=== PATIENT | female | born 1940 | race Caucasian/White ===

== ENCOUNTER 2020-08-19 10:48 | Day surgery (SDC) | payer MEDICARE ==
[2020-08-19] VITALS (8 sets, daily range): BP systolic 166–187; BP diastolic 66–86; PULSE 74–94; TEMP 98
[~2020-08-19] VITALS: Ht 154.9 cm; Wt 86.9 kg
[2020-08-19 11:38] LABS: BASO # 0.1 (0.0-0.2); BASO % 0.5 % (0.0-2.0); EOS # 0.8 (0.0-0.7); GRAN # 7.6 (1.4-6.5); LYMPH # 2.1 (1.2-3.4); LYMPH % 17.9 % (20.0-51.0); MEAN CELL VOLUME 85 fl (80.0-100.0); MEAN CORPUSCULAR HGB CONC 32 g/dl (33.0-37.0); MONO % 8.3 % (1.7-9.3); PLATELET COUNT 379 K/mm3 (130-400); RED BLOOD COUNT 3.56 M/mm3 (4.10-5.30); REDCELL DISTRIBUTION WIDTH-CV 14.7 % (11.5-14.5)
[2020-08-19 11:49] LABS: CALCIUM 9.2 mg/dL (8.4-10.2); CREATININE, serum 3.64 (0.52-1.25); POTASSIUM 4.4 mmol/L (3.4-5.0)
[2020-08-19] MEDS ORDERED: PROCARDIA20 MG PO (11:56)
[2020-08-19] MEDS ORDERED: SYNTHROID0.088 MG/T PO (11:56)
[2020-08-19 11:57] LABS: INR 1.1 (0.8-3.0); PROTHROMBIN TIME 11.8 SECONDS (9.7-12.8)
[2020-08-19] MEDS ORDERED: ATARAX 25MG25 MG/TAB PO (11:57)
[2020-08-19] MEDS ORDERED: CATAPRES 0.1MG0.1 MG PO (11:57)
[2020-08-19] MEDS ORDERED: HUMALOG100 U/ML SQ (11:58)
[2020-08-19] MEDS ORDERED: CARDURA 2MG2 MG PO (11:59)
[2020-08-19] MEDS ORDERED: ASPIRIN E.C. 8181 MG PO (11:59)
[2020-08-19 12:00] LABS: HEMATOCRIT 30.3 % (37.0-47.0); HEMOGLOBIN 9.6 g/dl (12.5-16.0); MEAN CORPUSCULAR HEMOGLOBIN 27 pg (27.0-31.0); PARTIAL THROMBOPLASTIN TIME 39.6 SECONDS (26.0-37.0)
[2020-08-19] MEDS ORDERED: FERRO-TIME325 MG PO (12:00)
[2020-08-19] MEDS ORDERED: PEPCID 20MG TAB20 MG PO (12:01)
[2020-08-19] MEDS ORDERED: TOPROL XL 50MG50 MG PO (12:02)
[2020-08-19] MEDS ORDERED: TRIAMCINOLONE A15 G3 TP (12:03)
[2020-08-19] MEDS ORDERED: BETAMETHASONE VA0.1% TP (12:03)
[2020-08-19] MEDS ORDERED: MYRBETR25MG PO (12:10)
[2020-08-19] MEDS ORDERED: TRAVATAN Z 2.52.5 ML OU (12:13)
[2020-08-19] MEDS ORDERED: LIPITOR 80MG80 MG PO (14:53)
[2020-08-19] MEDS ORDERED: PLAVIX 75MG TAB75 MG PO (14:54)
--- NOTE | 2020-08-19 18:10 | NUR ---
PT's bedrest is complete, pt is able to sit up at edge of bed, stand and ambulate to bathroom with walker with steady gait. No problems with groin site observed. site remains soft with clean dry and intact dressing. cms intact distal. I have reviewed dc, rx and fu instructions with pt and daughter. they denied any questions. IV was dc'd dressing applied, and pt to exit via wheelchair at 1835.
[2020-08-20] MEDS ORDERED: PEPCID 20MG TAB20 MG PO (08:32)
[2020-08-20] MEDS ORDERED: APRESOLINE 10MG10 MG PO (08:34)
[2020-08-20] MEDS ORDERED: APRESOLINE 25MG25 MG PO (08:34)
== END 2020-08-19 19:07 | disposition home or self-care (01) ==
LOC: COL.CAR 10:48
PROVIDERS: Internal Medicine Interventional Cardiology
DX: I25.10 Atherosclerotic heart disease of native coronary artery without angina pectoris (principal); R94.39 Abnormal result of other cardiovascular function study; I13.2 Hypertensive heart and chronic kidney disease with heart failure and with stage 5 chronic kidney disease, or end stage renal disease; E11.22 Type 2 diabetes mellitus with diabetic chronic kidney disease; I65.23 Occlusion and stenosis of bilateral carotid arteries; N18.5 Chronic kidney disease, stage 5; I50.30 Unspecified diastolic (congestive) heart failure; I27.20 Pulmonary hypertension, unspecified; I34.0 Nonrheumatic mitral (valve) insufficiency; D63.1 Anemia in chronic kidney disease; E66.9 Obesity, unspecified; E21.2 Other hyperparathyroidism; M19.90 Unspecified osteoarthritis, unspecified site; N32.81 Overactive bladder; E03.9 Hypothyroidism, unspecified; D33.3 Benign neoplasm of cranial nerves; Z90.5 Acquired absence of kidney; Z90.49 Acquired absence of other specified parts of digestive tract; Z96.653 Presence of artificial knee joint, bilateral; Z88.0 Allergy status to penicillin; Z88.3 Allergy status to other anti-infective agents; Z88.1 Allergy status to other antibiotic agents; Z88.5 Allergy status to narcotic agent
CPT/HCPCS: J1200; J1644; J1940; J2250; J2930; J3010; J7512

== ENCOUNTER 2020-08-20 07:03 | Emergency (ER) | payer MEDICARE ==
[~2020-08-20] VITALS: Ht 154.9 cm; Wt 82.3 kg
[~2020-08-20 07:03] MED LIST: ASPIRIN E.C. 8181 MG PO; ATARAX 25MG25 MG/TAB PO; BETAMETHASONE VA0.1% TP; CARDURA 2MG2 MG PO; CATAPRES 0.1MG0.1 MG PO; FERRO-TIME325 MG PO; HUMALOG100 U/ML SQ; LIPITOR 80MG80 MG PO; MYRBETR25MG PO; PEPCID 20MG TAB20 MG PO; PLAVIX 75MG TAB75 MG PO; PROCARDIA20 MG PO; SYNTHROID0.088 MG/T PO; TOPROL XL 50MG50 MG PO; TRAVATAN Z 2.52.5 ML OU; TRIAMCINOLONE A15 G3 TP
[2020-08-20 07:05] VITALS: TEMP 98.6
[2020-08-20 07:48] LABS: MEAN CELL VOLUME 85 fl (80.0-100.0); MEAN CORPUSCULAR HGB CONC 32 g/dl (33.0-37.0); MEAN PLATELET VOLUME 11.1 fl (7.4-10.4); PLATELET COUNT 368 K/mm3 (130-400); RED BLOOD COUNT 3.12 M/mm3 (4.10-5.30); REDCELL DISTRIBUTION WIDTH-CV 14.6 % (11.5-14.5)
[2020-08-20 07:49] LABS: HEMATOCRIT 26.6 % (37.0-47.0); HEMOGLOBIN 8.4 g/dl (12.5-16.0); MEAN CORPUSCULAR HEMOGLOBIN 27 pg (27.0-31.0)
[2020-08-20 07:56] LABS: INR 1.1 (0.8-3.0); PROTHROMBIN TIME 12.5 SECONDS (9.7-12.8)
[2020-08-20 08:10] LABS: ALBUMIN 3.7 gm/dL (3.5-5.0); BILIRUBIN,TOTAL 0.6 mg/dL (0.0-1.0); CALCIUM 8.8 mg/dL (8.4-10.2); CREATININE, serum 3.83 (0.52-1.25); POTASSIUM 4.5 mmol/L (3.4-5.0); TOTAL PROTEIN 6.5 gm/dL (6.4-8.2)
[2020-08-20 08:22] LABS: TROPONIN-I 0.2 ng/mL (0.000-0.035)
[2020-08-20 08:23] LABS: LYMPHOCYTE 6 % (20.0-51.0); NEUTROPHILS 93 % (42.0-75.2); OVALOCYTES 2+; PLATELET ESTIMATE NORMAL (NORMAL)
[2020-08-20 08:24] LABS: BURR CELLS 1+
[2020-08-20] MEDS ORDERED: PEPCID 20MG TAB20 MG PO (08:32)
[2020-08-20] MEDS ORDERED: APRESOLINE 25MG25 MG PO (08:34)
[2020-08-20] MEDS ORDERED: APRESOLINE 10MG10 MG PO (08:34)
[2020-08-20 09:15] LABS: COLLECTION METHOD CLEAN CATCH
[2020-08-20 09:26] LABS: MUCOUS Present /lpf; PH 5 (5-8); URINE APPEARANCE Cloudy; URINE BACTERIA Rare /hpf; URINE BILIRUBIN Negative (NEGATIVE); URINE BLOOD 1+ (NEGATIVE); URINE COLOR Yellow; URINE GLUCOSE Negative (NEGATIVE); URINE KETONE Negative (NEGATIVE); URINE LEUKOCYTE ESTERASE 2+ (NEGATIVE); URINE NITRATE Negative (NEGATIVE); URINE PROTEIN(semi-quant) Negative (NEGATIVE); URINE UROBILINOGEN Negative (NEGATIVE)
[2020-08-20 14:15] VITALS: BP 150/61; PULSE 64
--- NOTE | 2020-08-20 19:11 | NUR ---
Sw received a call from ED nurse to complete a DPOa with patient before she was transported to [facility]. Patient spoke with patient who was with her daughter Griselda [phone]. Patient gave SW permission to discuss information with her daughter present. Patient currently resides in [facility] with her daughter Griselda [phone] as care support and patients EMR. patient also resides with her granddaughter Perez [phone]. Patient reports that she has been independent with ADL's and that her PCP is Dr Palafox at [facility], and she gets her medications from [facility] on [address]. Patient is oriented to person, place, time, and events. We completed a current DPOA as requested. Forms were witnessed by a nurse and SW. Copy included in patients discharge record, and her file. Another copy was provided to patient.
== END 2020-08-20 14:15 | disposition short-term general hospital (02) ==
LOC: COL.ER 07:03
PROVIDERS: Emergency Medicine
DX: S00.93XA Contusion of unspecified part of head, initial encounter (principal); R40.2410 Glasgow coma scale score 13-15, unspecified time; N18.9 Chronic kidney disease, unspecified; Z95.9 Presence of cardiac and vascular implant and graft, unspecified; Z88.0 Allergy status to penicillin; Z88.6 Allergy status to analgesic agent; Z79.4 Long term (current) use of insulin; Z79.82 Long term (current) use of aspirin; W01.10XA Fall on same level from slipping, tripping and stumbling with subsequent striking against unspecified object, initial encounter
CPT/HCPCS: J0696

== ENCOUNTER 2020-10-02 09:40 | Inpatient (IN) | payer MEDICARE ==
[~2020-10-02] VITALS: Wt 80.3 kg
[2020-10-02] VITALS (46 sets, daily range): BP systolic 108–131; BP diastolic 47–72; PULSE 84–96; TEMP 97.2–98.4; O2SAT 76–97
[~2020-10-02 09:40] MED LIST changes: +APRESOLINE 10MG10 MG PO; +APRESOLINE 25MG25 MG PO
[2020-10-02 10:04] LABS: BASO # 0.1 (0.0-0.2); BASO % 0.5 % (0.0-2.0); EOS % 0.1 % (0-4.0); GRAN # 7.6 (1.4-6.5); LYMPH # 1.5 (1.2-3.4); LYMPH % 15.6 % (20.0-51.0); MEAN CELL VOLUME 91 fl (80.0-100.0); MEAN CORPUSCULAR HGB CONC 30 g/dl (33.0-37.0); MEAN PLATELET VOLUME 10.7 fl (7.4-10.4); MONO # 0.5 (0.1-0.6); MONO % 5.4 % (1.7-9.3); PLATELET COUNT 464 K/mm3 (130-400); RED BLOOD COUNT 2.04 M/mm3 (4.10-5.30)
[2020-10-02 10:06] LABS: INR 1.8 (0.8-3.0); PROTHROMBIN TIME 20.4 SECONDS (9.7-12.8)
[2020-10-02 10:09] LABS: HEMATOCRIT 18.6 % (37.0-47.0); HEMOGLOBIN 5.5 g/dl (12.5-16.0); MEAN CORPUSCULAR HEMOGLOBIN 27 pg (27.0-31.0); PARTIAL THROMBOPLASTIN TIME 40.5 SECONDS (26.0-37.0)
[2020-10-02 10:16] LABS: ALBUMIN 3.3 gm/dL (3.5-5.0); BILIRUBIN,TOTAL 0.6 mg/dL (0.0-1.0); CALCIUM 8.8 mg/dL (8.4-10.2); CREATININE, serum 3.9 (0.52-1.25); MAGNESIUM 1.7 mg/dL (1.6-2.3); PHOSPHOROUS 5.8 mg/dL (2.5-4.5); POTASSIUM 4.1 mmol/L (3.4-5.0); TOTAL PROTEIN 6.2 gm/dL (6.4-8.2)
[2020-10-02 10:30] LABS: TROPONIN-I 1.76 ng/mL (0.000-0.035)
[2020-10-02 11:06] LABS: COLLECTION METHOD CLEAN CATCH
[2020-10-02 11:12] LABS: PH 5 (5-8); SQUAMOUS EPITHELIAL 0-2 /hpf; URINE APPEARANCE Hazy; URINE BACTERIA None Seen /hpf; URINE BILIRUBIN Negative (NEGATIVE); URINE BLOOD Negative (NEGATIVE); URINE COLOR Yellow; URINE GLUCOSE Negative (NEGATIVE); URINE KETONE Negative (NEGATIVE); URINE LEUKOCYTE ESTERASE Negative (NEGATIVE); URINE NITRATE Negative (NEGATIVE); URINE PROTEIN(semi-quant) Negative (NEGATIVE); URINE RBC 0-2 /hpf; URINE UROBILINOGEN Negative (NEGATIVE)
[2020-10-02] MEDS ORDERED: ELIQUIS 2.5 PO (13:04)
[2020-10-02] MEDS ORDERED: DARBEPOETIN ALFA SQ (13:10)
[2020-10-02] MEDS ORDERED: LASIX 40MG TABL40 MG PO (13:11)
[2020-10-02] MEDS ORDERED: CATAPRES 0.1MG0.1 MG PO (13:12)
[2020-10-02] MEDS ORDERED: PLAVIX 75MG TAB75 MG PO (13:12)
[2020-10-02] MEDS ORDERED: SENEXON-S 50-81 EACH PO (13:13)
[2020-10-02] MEDS ORDERED: TOUJEO MAX300 UNIT/1 SQ (13:14)
--- NOTE | 2020-10-02 16:03 | NUR ---
Critical rowann relayed to Dr. Lees.
--- NOTE | 2020-10-02 16:38 | NUR ---
PT transferred to room 312 via bed without incident. Hand-off report given to RACHAEL Ta.
--- NOTE | 2020-10-02 18:00 | NUR ---
Pt arrived to room 312 at this time from ICU. Bedside report received. Pt currently receiving second unit of blood. Tolerating it well. She is A/O x4. No issues with breathing. Denies pain. IV to RAC and RFA working without issues. POC discussed with patient who verbalizes understanding. No needs at this time.
[2020-10-02 18:32] LABS: IRON,SERUM 85 ug/dL (35-150)
[2020-10-02 18:41] LABS: TOTAL IRON BINDING CAPACITY 271 ug/dL (265-497)
[2020-10-02] MEDS ORDERED: NOVOLOG 100U100 U/M1 SQ (19:42)
[2020-10-02] MEDS ORDERED: TYLENOL 500MG500 MG PO (19:44)
--- NOTE | 2020-10-02 21:10 | NUR ---
Pt assessment completed and documented. Pt resting in bed at this time. Pt alert and oriented x4. Denies pain. INT to right AC CDI. Tele on. Fall precautions implemented. Bed alarm on. Pt denies any other needs/concerns. Call light within reach. Will continue to monitor
[2020-10-02 22:25] LABS: HEMATOCRIT 26.2 % (37.0-47.0); HEMOGLOBIN 8.3 g/dl (12.5-16.0)
[2020-10-03] VITALS (11 sets, daily range): BP systolic 106–161; BP diastolic 43–65; PULSE 64–103; TEMP 97.4–98.7
--- NOTE | 2020-10-03 06:35 | NUR ---
Pt assisted to commode multiple times overnight to urinate. Pt continues to have small soft black stools. No complaits of pain throughout the night. INT to right forearm CDI. PT denies any other needs/concerns. Bed alarm on. Call light within reach
--- NOTE | 2020-10-03 06:50 | NUR ---
Report given to RACHAEL Bingham
--- NOTE | 2020-10-03 06:55 | NUR ---
assisted up to bedside commode by RUG SIZER, bedside shift report received from RACHAEL Bowen, ready for EGD
[2020-10-03 07:04] LABS: BASO # 0.1 (0.0-0.2); BASO % 0.4 % (0.0-2.0); EOS # 0.1 (0.0-0.7); EOS % 0.9 % (0-4.0); GRAN # 10.4 (1.4-6.5); GRAN % 74.5 % (42.2-75.2); LYMPH # 2.3 (1.2-3.4); LYMPH % 16.7 % (20.0-51.0); MEAN CELL VOLUME 90 fl (80.0-100.0); MEAN CORPUSCULAR HGB CONC 32 g/dl (33.0-37.0); MEAN PLATELET VOLUME 11.2 fl (7.4-10.4); PLATELET COUNT 417 K/mm3 (130-400); RED BLOOD COUNT 2.84 M/mm3 (4.10-5.30); REDCELL DISTRIBUTION WIDTH-CV 16.8 % (11.5-14.5)
[2020-10-03 07:05] LABS: HEMATOCRIT 25.6 % (37.0-47.0); HEMOGLOBIN 8.2 g/dl (12.5-16.0); MEAN CORPUSCULAR HEMOGLOBIN 29 pg (27.0-31.0)
[2020-10-03 07:13] LABS: INR 1.5 (0.8-3.0); PROTHROMBIN TIME 17.2 SECONDS (9.7-12.8)
[2020-10-03 07:17] LABS: ALBUMIN 3.2 gm/dL (3.5-5.0); BILIRUBIN,TOTAL 0.8 mg/dL (0.0-1.0); CALCIUM 8.7 mg/dL (8.4-10.2); CREATININE, serum 3.71 (0.52-1.25); POTASSIUM 3.4 mmol/L (3.4-5.0)
--- NOTE | 2020-10-03 07:18 | NUR ---
to endoscopy per stretcher
[2020-10-03 07:42] LABS: TROPONIN-I 5.54 ng/mL (0.000-0.035)
--- NOTE | 2020-10-03 08:15 | NUR ---
returned to room per peyton from endoscopy, alert and oriented, assisted off stretcher and into bed, full assessment completed, see interventions for further info, verified telemetry with television picture tube rebuilder, IV fluids stopped, has large pink mepiplex to cocyx that is draining, will change later, denies needs at this time
--- NOTE | 2020-10-03 08:30 | NUR ---
vascular lab in and echo being completed
--- NOTE | 2020-10-03 12:08 | NUR ---
therapy in to work with patient
--- NOTE | 2020-10-03 12:45 | NUR ---
Initial visit; Patient teary eyed over recent losses, moving to new state and learning she has a number of physical issues. Jackelin was receptive to prayer and someone listening. Edge Stripper will follow up while Jackelin is a patient here.
--- NOTE | 2020-10-03 13:46 | NUR ---
was up to bedside commode and had small black stool, hygiene provided, then assisted back to bed, appears more weak this afternoon than this am when she was able to get up wiwth 1 assist and them ps it was 2 assist, unit of blood started and will remain withpatient for the first 15 minutes
--- NOTE | 2020-10-03 14:00 | NUR ---
tolerates infusion without s/s of reaction, talking on phone with her daughter, rate increased to 100ml/hr
--- NOTE | 2020-10-03 15:07 | NUR ---
transfusion continues and she continues to tolerate well without s/s of reaction
--- NOTE | 2020-10-03 15:08 | NUR ---
Balance Sheet Analyst met with patient to discuss discharge planning. Patient lives in [place] with her daughter, Griselda (ph#[phone]) [address] Palafox for primary care. [facility] and reports her daughter, Griselda picks up the medications for her. Patient has a cane, walker, wheelchair, and tub transfer bench at home. Patient reports her daughter assists her with ADLS like showering. Patient states she was just recently at [facility] in [place] and was discharged home with [facility]. Patient states [facility] was supposed to admit her today. Patient has DPOA-HC in EMR which designate her daughter, Griselda and other daughter, Sylwia. SANG contacted Griselda who advised the plan is for patient to return home as long as she is strong enough to. Griselda states patient was discharged from [facility] on 09/24/20 and things were going well until this weekend patient started feeling weak and could not complete ADLS without total assistance. After speaking with Griselda, SANG faxed a referral to [facility] then left a message for Felicia, Core Machine Operator. SANG will continue to follow.
--- NOTE | 2020-10-03 17:04 | NUR ---
blood completed, tolerated transfusion well,
--- NOTE | 2020-10-03 17:50 | NUR ---
assisted up to bedside commode and then back to bed, was able to get up to commode and then ambulate few steps back to bed with only 1 assist
--- NOTE | 2020-10-03 18:30 | NUR ---
Dr Dunne in to see patient and assess buttocks, will only yse barrier cram at this time
--- NOTE | 2020-10-03 18:50 | NUR ---
bedside shift report given to RACHAEL Barrera, rolled to side and barrier jel and new dressing placed and she assessed also
--- NOTE | 2020-10-04 00:55 | NUR ---
Pt has become more confused tonight, calling out for her daughter and does not understand that she is in the hospital. agitated and wanting to get up. this nurse called Yoana and notified him of the pt changed in status and that pt does not have any medication ordered to help calm her. Yoana stated that he will take care of it in the morning. will continue to monitor.
[2020-10-04 04:27] VITALS: BP 131/51; PULSE 94; TEMP 98.4
--- NOTE | 2020-10-04 06:28 | NUR ---
pt awake most of the night, continued to be confused. up to go to the bathroom multiple times, voiding small amount each time. lacteration on the buttock was recovered throughout the night with mepilex. no other needs at this time, will continue to monitor.
[2020-10-04 06:44] LABS: MEAN CELL VOLUME 90 fl (80.0-100.0); MEAN CORPUSCULAR HGB CONC 32 g/dl (33.0-37.0); MEAN PLATELET VOLUME 11.2 fl (7.4-10.4); PLATELET COUNT 413 K/mm3 (130-400); RED BLOOD COUNT 3.38 M/mm3 (4.10-5.30)
[2020-10-04 06:53] LABS: HEMATOCRIT 30.3 % (37.0-47.0); HEMOGLOBIN 9.6 g/dl (12.5-16.0); MEAN CORPUSCULAR HEMOGLOBIN 28 pg (27.0-31.0)
[2020-10-04 06:56] LABS: ALBUMIN 3.3 gm/dL (3.5-5.0); CALCIUM 8.8 mg/dL (8.4-10.2); CREATININE, serum 3.55 (0.52-1.25); POTASSIUM 3.2 mmol/L (3.4-5.0); TOTAL PROTEIN 6.4 gm/dL (6.4-8.2)
[2020-10-04 07:38] LABS: LYMPHOCYTE 15 % (20.0-51.0); NEUTROPHILS 77 % (42.0-75.2); NUCLEATED RED BLOOD CELL 1 (0-6)
[2020-10-04 07:40] VITALS: BP 116/96; PULSE 104; TEMP 98.3
[2020-10-04 07:40] LABS: ANISOCYTOSIS 1+; HYPOCHROMIA 2+; PLATELET ESTIMATE INCREASED (NORMAL)
[2020-10-04 07:42] LABS: BURR CELLS 1+; OVALOCYTES 1+
[2020-10-04 07:46] LABS: POIKILOCYTOSIS 1+
--- NOTE | 2020-10-04 10:56 | NUR ---
Pt assessment completed and charted. Medications administered per mar. Pt A&O, SBA in room, on room air, breathing is even and unlabored, denies SOB, N/V/D, chest pain, dizziness, abdominal pain. RFA INT IV flushes w/o difficulty. MARIELA fistula in place, bruit and thrill present. pt denies needs at this time.
[2020-10-04 11:00] VITALS: BP 130/54; PULSE 91; TEMP 98.6
[2020-10-04 16:02] VITALS: BP 146/78; PULSE 86; TEMP 98.4
--- NOTE | 2020-10-04 16:34 | NUR ---
Supervisor Mattress And Boxsprings collaborated with RACHAEL Samayoa who advised patient would like Omeprazole brought in. SW spoke with RACHAEL Watters who advised this was because patient did not want to take Protonix. SW contacted patient's daughter, Griselda who will bring this in. SW will continue to follow.
[2020-10-04 19:20] VITALS: BP 132/58; PULSE 95; TEMP 98.2
[2020-10-04 23:20] VITALS: BP 164/65; PULSE 80; TEMP 98.6
--- NOTE | 2020-10-05 00:31 | NUR ---
Pt resting in the chair, assisted back into bed. assessment completed and medications given per JAN. lung sounds are clear, on room air. heart sounds are regular and normal. lacteration on the buttock and coxyx area, covered in mepilex. alert and oriented this evening, no other needs at this time. will continue to monitor.
[2020-10-05 03:21] VITALS: BP 123/76; PULSE 89; TEMP 98
[2020-10-05 06:10] LABS: BASO # 0.1 (0.0-0.2); BASO % 0.5 % (0.0-2.0); EOS # 0.3 (0.0-0.7); EOS % 3.2 % (0-4.0); GRAN # 7.2 (1.4-6.5); GRAN % 68.1 % (42.2-75.2); LYMPH % 19.4 % (20.0-51.0); MEAN CELL VOLUME 91 fl (80.0-100.0); MEAN CORPUSCULAR HGB CONC 32 g/dl (33.0-37.0); MEAN PLATELET VOLUME 10.9 fl (7.4-10.4); MONO # 0.9 (0.1-0.6); MONO % 8.6 % (1.7-9.3); PLATELET COUNT 374 K/mm3 (130-400); RED BLOOD COUNT 3.35 M/mm3 (4.10-5.30); REDCELL DISTRIBUTION WIDTH-CV 16.9 % (11.5-14.5)
--- NOTE | 2020-10-05 06:17 | NUR ---
pt alert and oriented throughout the night, up with assistance to the bathroom. called for any needs, slept most of the night. no other needs at this time.
[2020-10-05 06:26] LABS: ALBUMIN 3.3 gm/dL (3.5-5.0); BILIRUBIN,TOTAL 0.8 mg/dL (0.0-1.0); CALCIUM 8.7 mg/dL (8.4-10.2); CREATININE, serum 3.62 (0.52-1.25); POTASSIUM 3.1 mmol/L (3.4-5.0); TOTAL PROTEIN 6.4 gm/dL (6.4-8.2)
[2020-10-05 06:27] LABS: HEMATOCRIT 30.4 % (37.0-47.0); HEMOGLOBIN 9.6 g/dl (12.5-16.0); MEAN CORPUSCULAR HEMOGLOBIN 29 pg (27.0-31.0)
[2020-10-05 07:16] VITALS: BP 143/58; PULSE 87; TEMP 98.3
--- NOTE | 2020-10-05 09:22 | NUR ---
Pt assessment completed and charted, medications administered per jan. Pt sitting in recliner upon entry, pt denies pain, dizziness, N/V/D, chest pain, paliptations. Pt walked w/ therapy & states she gets a little SOB "behind that mask". LS cta, HRRR, pulses strong bilaterally. MARIELA fistula present w/ thrill and bruit. RFA INT IV flushes well w/ some drainage noted. Pt to DC today, will remove then. BS active X4. Mild, 1+ edema to BLE. Pt has stage 2 ulcer/laceration to coccyx w/ mepilex on, CDI. Pt A&O, no further needs expressed at this time. Call light within reach.
[2020-10-05 11:07] VITALS: BP 113/52; PULSE 92; TEMP 97.6
[2020-10-05] MEDS ORDERED: CORDARONE200 MG/TAB PO (11:19)
[2020-10-05] MEDS ORDERED: SODIUM BICARBO650 MG PO (11:23)
[2020-10-05] MEDS ORDERED: CARAFATE 1GM1 G PO (11:26)
[2020-10-05] MEDS ORDERED: PROTONIX 40MG T40 MG PO (11:29)
[2020-10-05] MEDS ORDERED: ASPIRIN E.C. 8181 MG PO (11:30)
[2020-10-05] MEDS ORDERED: AMOXICILLIN/CLA1 TA1 PO (11:36)
--- NOTE | 2020-10-05 14:38 | NUR ---
Press Breaker met with patient and Dr. Lees as patient is ready for discharge today. Patient's daughter, Griselda is on speakerphone. Patient and Griselda are in agreement with discharge home with [facility] PT/OT/Nursing. Griselda to warehouse order picker patient this afternoon. SANG called Felicia at [facility] and faxed discharge orders. Felicia states they will start services with patient upon discharge. No additional needs at this time.
--- NOTE | 2020-10-05 14:54 | NUR ---
Pt discharge instructions discussed and reviewed w/ patient who verbalized understanding, all questions answered. No further needs. RFA INT IV dc'd w/ catheter tip intact and no issues. Pt escorted out via WC w/ NAIMA Grant.
== END 2020-10-05 14:59 | disposition home or self-care (01) | DRG 377 ==
LOC: COL.ER 09:40 → MEDICAL 11:43 → ICU 11:43 → MEDICAL 16:27
PROVIDERS: Emergency Medicine; Internal Medicine Gastroenterology; ADMIT Internal Medicine Nephrology
PROC: 0DB68ZX Excision of Stomach, Via Natural or Artificial Opening Endoscopic, Diagnostic (ICD-10-PCS; principal; 2020-10-03 06:30)
DX: K29.71 Gastritis, unspecified, with bleeding (principal); I21.A1 Myocardial infarction type 2; E43 Unspecified severe protein-calorie malnutrition; D62 Acute posthemorrhagic anemia; N18.5 Chronic kidney disease, stage 5; E87.2 Acidosis; N39.0 Urinary tract infection, site not specified; I12.0 Hypertensive chronic kidney disease with stage 5 chronic kidney disease or end stage renal disease; I48.91 Unspecified atrial fibrillation; D63.1 Anemia in chronic kidney disease; I65.23 Occlusion and stenosis of bilateral carotid arteries; D47.3 Essential (hemorrhagic) thrombocythemia; I27.20 Pulmonary hypertension, unspecified; E03.9 Hypothyroidism, unspecified; K21.9 Gastro-esophageal reflux disease without esophagitis; M19.90 Unspecified osteoarthritis, unspecified site; L89.159 Pressure ulcer of sacral region, unspecified stage; E11.22 Type 2 diabetes mellitus with diabetic chronic kidney disease; I25.10 Atherosclerotic heart disease of native coronary artery without angina pectoris; Z79.01 Long term (current) use of anticoagulants; Z85.528 Personal history of other malignant neoplasm of kidney; Z79.4 Long term (current) use of insulin; Z88.0 Allergy status to penicillin; Z88.1 Allergy status to other antibiotic agents; Z88.6 Allergy status to analgesic agent; Z86.73 Personal history of transient ischemic attack (TIA), and cerebral infarction without residual deficits; Z96.652 Presence of left artificial knee joint
CPT/HCPCS: J0696; J1815; J2704; J2916; J7030; P9016; Q5105

== ENCOUNTER 2021-04-22 04:36 | Inpatient (IN) | payer MEDICARE ==
[~2021-04-22] VITALS: Ht 170.2 cm; Wt 86.7 kg
[~2021-04-22 04:36] MED LIST changes: +AMOXICILLIN/CLA1 TA1 PO; +CARAFATE 1GM1 G PO; +CORDARONE200 MG/TAB PO; +DARBEPOETIN ALFA SQ; +ELIQUIS 2.5 PO; +LASIX 40MG TABL40 MG PO; +NOVOLOG 100U100 U/M1 SQ; +PROTONIX 40MG T40 MG PO; +SENEXON-S 50-81 EACH PO; +SODIUM BICARBO650 MG PO; +TOUJEO MAX300 UNIT/1 SQ; +TYLENOL 500MG500 MG PO
[2021-04-22 05:10] LABS: BASO % 0.4 % (0.0-2.0); EOS # 0.3 (0.0-0.7); EOS % 2.9 % (0-4.0); GRAN # 7.7 (1.4-6.5); GRAN % 80.5 % (42.2-75.2); MEAN CELL VOLUME 79 fl (80.0-100.0); MEAN CORPUSCULAR HGB CONC 31 g/dl (33.0-37.0); MONO # 0.6 (0.1-0.6); MONO % 5.8 % (1.7-9.3); PLATELET COUNT 241 K/mm3 (130-400); RED BLOOD COUNT 3.56 M/mm3 (4.10-5.30); REDCELL DISTRIBUTION WIDTH-CV 18.1 % (11.5-14.5)
[2021-04-22 05:15] LABS: HEMOGLOBIN 8.7 g/dl (12.5-16.0); MEAN CORPUSCULAR HEMOGLOBIN 24 pg (27.0-31.0)
[2021-04-22 05:25] LABS: ALBUMIN 3.6 gm/dL (3.5-5.0); BILIRUBIN,TOTAL 1.6 mg/dL (0.0-1.0); C-REACTIVE PROTEIN 3.7 mg/dL (0.0-0.9); CALCIUM 8.8 mg/dL (8.4-10.2); CREATININE, serum 5.75 (0.52-1.25); POTASSIUM 3.5 mmol/L (3.4-5.0); TOTAL PROTEIN 7.1 gm/dL (6.4-8.2)
[2021-04-22 05:36] LABS: TROPONIN-I 0.065 ng/mL (0.000-0.035)
[2021-04-22 06:54] LABS: COLLECTION METHOD CLEAN CATCH
[2021-04-22 07:07] LABS: PH 5 (5-8); SQUAMOUS EPITHELIAL None Seen /hpf; URINE APPEARANCE Clear; URINE BACTERIA None Seen /hpf; URINE BILIRUBIN Negative (NEGATIVE); URINE BLOOD 2+ (NEGATIVE); URINE COLOR Yellow; URINE GLUCOSE Negative (NEGATIVE); URINE KETONE Negative (NEGATIVE); URINE LEUKOCYTE ESTERASE Negative (NEGATIVE); URINE NITRATE Negative (NEGATIVE); URINE PROTEIN(semi-quant) 1+ (NEGATIVE); URINE RBC None Seen /hpf
--- NOTE | 2021-04-22 14:00 | NUR ---
Patient alert and oriented, answers questions appropriately. See assessment. Abdomen with redness noted under pannus, moisture wicking cloth in place. BLE with 1+ edema noted, pulses palpable. Patient states she has had progressive weakness over the last month. Does tranfer with assist x2 with gait belt to commode. No c/o at this time.
[2021-04-22 15:32] VITALS: BP 142/47; PULSE 59; TEMP 97.8
[2021-04-22 17:49] LABS: IRON,SERUM 41 ug/dL (35-150)
[2021-04-22 17:58] LABS: TOTAL IRON BINDING CAPACITY 288 ug/dL (265-497)
[2021-04-22 20:01] VITALS: BP 147/56; PULSE 61; TEMP 97.8
[2021-04-22 23:13] VITALS: BP 124/36; PULSE 65; TEMP 98.1
[2021-04-23 03:45] VITALS: BP 144/50; PULSE 68; TEMP 98.3
--- NOTE | 2021-04-23 06:15 | NUR ---
Patient had no major complaints throughout the shift. Got up to bedside commode to void with gait belt and 1-2 assist. Some redness on patient's bottom and in groin noted. Patient refused her protonix stating she had taken it in the past and it did not make her feel well.
[2021-04-23 07:21] VITALS: BP 144/42; PULSE 63; TEMP 97.9
[2021-04-23 07:29] LABS: BASO % 0.4 % (0.0-2.0); EOS # 0.3 (0.0-0.7); EOS % 3.9 % (0-4.0); GRAN # 5.9 (1.4-6.5); GRAN % 74.6 % (42.2-75.2); LYMPH % 12.2 % (20.0-51.0); MEAN CELL VOLUME 79 fl (80.0-100.0); MEAN CORPUSCULAR HGB CONC 32 g/dl (33.0-37.0); MONO # 0.7 (0.1-0.6); MONO % 8.4 % (1.7-9.3); PLATELET COUNT 215 K/mm3 (130-400); RED BLOOD COUNT 3.16 M/mm3 (4.10-5.30); REDCELL DISTRIBUTION WIDTH-CV 18.1 % (11.5-14.5)
[2021-04-23 07:32] LABS: HEMATOCRIT 24.9 % (37.0-47.0); HEMOGLOBIN 7.9 g/dl (12.5-16.0); MEAN CORPUSCULAR HEMOGLOBIN 25 pg (27.0-31.0)
[2021-04-23 07:34] LABS: CALCIUM 8.5 mg/dL (8.4-10.2); CREATININE, serum 5.52 (0.52-1.25); PHOSPHOROUS 5.8 mg/dL (2.5-4.5); POTASSIUM 3.6 mmol/L (3.4-5.0)
--- NOTE | 2021-04-23 10:00 | NUR ---
Patient alert and oriented, answers questions appropriately. See assessment. No c/o n/v, states appetite is good. BLE with 1+ edema noted, pulses palpable. Transfers from bed to bedside commode with gait belt and assist x1. States she is scared she will fall when standing/walking, educated on transfers and supporting devices. No c/o at this time.
[2021-04-23 11:41] VITALS: BP 143/46; PULSE 58; TEMP 97.8
--- NOTE | 2021-04-23 13:48 | NUR ---
Dr Edmonds notified of consult.
--- NOTE | 2021-04-23 13:51 | NUR ---
SW met with patient to complete intake. Patient states that she lives in [place] with her daughter Griselda [phone] who is also her DPOA-HC. Patient states that she currently utilizes a walker and a wheelchair to get to and from destinations in her daughters home. Patient states that she does obtain assistance from her daughter with ADL's, PCP is Dr. Palafox, pharmacy is [facility] and states that she is able to afford her medications. Patient states that her plan is to go back to her daughters home in [place] at this time. She has no current questions or concerns in that regards. SW will continue to follow. Plan:Back to berenice's home in [place]
[2021-04-23 15:19] VITALS: BP 149/47; PULSE 60; TEMP 97.9
[2021-04-23 21:00] VITALS: BP 145/38; PULSE 64; TEMP 98.3
[2021-04-23 23:29] VITALS: BP 130/37; PULSE 66; TEMP 98.5
[2021-04-24 03:57] VITALS: BP 145/45; PULSE 65; TEMP 98.3
--- NOTE | 2021-04-24 05:11 | NUR ---
Patient had trouble sleeping throughout the shift. Repositioned patient several times for comfort. Patient got up to the bedside commode with 1-2 assist. Took brief off patient for comfort and to help with redness around groin area. Patient has been continent.
[2021-04-24 07:11] LABS: BASO % 0.4 % (0.0-2.0); EOS # 0.4 (0.0-0.7); EOS % 4.5 % (0-4.0); GRAN # 6.8 (1.4-6.5); GRAN % 75.4 % (42.2-75.2); LYMPH % 10.9 % (20.0-51.0); MEAN CELL VOLUME 80 fl (80.0-100.0); MEAN CORPUSCULAR HGB CONC 31 g/dl (33.0-37.0); MONO # 0.8 (0.1-0.6); MONO % 8.4 % (1.7-9.3); PLATELET COUNT 233 K/mm3 (130-400); REDCELL DISTRIBUTION WIDTH-CV 18.4 % (11.5-14.5)
[2021-04-24 07:23] LABS: HEMATOCRIT 26.3 % (37.0-47.0); HEMOGLOBIN 8.1 g/dl (12.5-16.0); MEAN CORPUSCULAR HEMOGLOBIN 25 pg (27.0-31.0)
[2021-04-24 07:28] LABS: CALCIUM 8.6 mg/dL (8.4-10.2); CREATININE, serum 5.81 (0.52-1.25); PHOSPHOROUS 5.4 mg/dL (2.5-4.5); POTASSIUM 3.7 mmol/L (3.4-5.0)
[2021-04-24 08:06] VITALS: BP 151/54; PULSE 64; TEMP 97.8
[2021-04-24 11:21] VITALS: BP 143/49; PULSE 66; TEMP 98.4
[2021-04-24 15:21] VITALS: BP 162/56; PULSE 65; TEMP 98.2
[2021-04-24 15:34] LABS: ALBUMIN 3.4 gm/dL (3.5-5.0); BILIRUBIN,TOTAL 1.6 mg/dL (0.0-1.0); CREATININE, serum 5.81 (0.52-1.25); POTASSIUM 4.1 mmol/L (3.4-5.0); TOTAL PROTEIN 6.9 gm/dL (6.4-8.2)
--- NOTE | 2021-04-24 18:30 | NUR ---
Patient is not very motivated to do more activities. She states she is too weak to help with some her cares. Explained to utilize the walker more so that she is more steady when standing up. She did eat better today. She keeps being upset about the fluid restriction. She does not understand why she needs to be on a restriction. Minimal complaints of pain. No complaints of nausea. She stated she has some aching. No other changes at this time. Call light within reach.
[2021-04-24 19:41] VITALS: BP 149/46; PULSE 64; TEMP 98.3
[2021-04-24 23:44] VITALS: BP 147/88; PULSE 64; TEMP 98
[2021-04-25 03:51] VITALS: BP 141/43; PULSE 58; TEMP 97.9
--- NOTE | 2021-04-25 04:50 | NUR ---
Patient has been sleeping in the recliner. Patient seems to be getting more sleep than last night. Getting up to the bedside commode with 1-2 assist. Area in skin folds around patient's groin is red and tender. Areas cleaned with soap and water, applied desenex, and put an interdry in folds.
[2021-04-25 06:08] LABS: BASO % 0.4 % (0.0-2.0); EOS # 0.5 (0.0-0.7); EOS % 6.2 % (0-4.0); GRAN # 5.8 (1.4-6.5); LYMPH # 1.2 (1.2-3.4); LYMPH % 14.1 % (20.0-51.0); MEAN CELL VOLUME 79 fl (80.0-100.0); MEAN CORPUSCULAR HGB CONC 31 g/dl (33.0-37.0); MONO # 0.6 (0.1-0.6); MONO % 7.8 % (1.7-9.3); RED BLOOD COUNT 3.33 M/mm3 (4.10-5.30); REDCELL DISTRIBUTION WIDTH-CV 18.2 % (11.5-14.5)
[2021-04-25 06:21] LABS: HEMATOCRIT 26.3 % (37.0-47.0); HEMOGLOBIN 8.1 g/dl (12.5-16.0); MEAN CORPUSCULAR HEMOGLOBIN 24 pg (27.0-31.0)
[2021-04-25 06:22] LABS: PLATELET COUNT 375 K/mm3 (130-400)
[2021-04-25 06:23] LABS: ALBUMIN 3.2 gm/dL (3.5-5.0); CALCIUM 8.8 mg/dL (8.4-10.2); CREATININE, serum 5.83 (0.52-1.25); PHOSPHOROUS 5.3 mg/dL (2.5-4.5); POTASSIUM 3.7 mmol/L (3.4-5.0)
[2021-04-25 07:38] VITALS: BP 146/48; PULSE 59; TEMP 98.4
[2021-04-25 12:53] LABS: PLEURAL FLUID RBC 0 /mm3 (0-0); PLEURAL FLUID WBC 94 /mm3
[2021-04-25 12:55] LABS: PLEURAL FLUID APPEARANCE CLEAR; PLEURAL FLUID COLOR YELLOW
[2021-04-25 13:12] LABS: GLUCOSE,PLEURAL FLUID 107 mg/dL; TOTAL PROTEIN,PLEURAL FLUID 2.6 gm/dL
--- NOTE | 2021-04-25 13:49 | NUR ---
Station Captain contacted patient's daughter, Griselda to discuss discharge planning. PT is recommending that patient will likely need post acute rehab. Griselda is agreeable to have rehab referrals sent and also is hopeful that after a couple rounds of dialysis, patient will regain some of her strength. Griselda would like referrals sent to [facility] and [facility]. SW contacted Michelle at [facility] to give referral. SW also contacted Alida at [facility] and faxed referral. Discharge Plan: Awaiting screens from [facility] and [facility].
--- NOTE | 2021-04-25 14:45 | NUR ---
First visit from the radiology manager. Chaplain trejod with patient.
[2021-04-25 15:20] VITALS: BP 123/65; PULSE 92; TEMP 101.4
--- NOTE | 2021-04-25 15:20 | NUR ---
WATCHING PATIENT WHO IS IN DIALYSIS AND IS REQUESTING SOMETHING FOR PAIN. GAVE PRN TYLENOL.
[2021-04-25 16:10] VITALS: BP 172/64; PULSE 64; TEMP 97.6
--- NOTE | 2021-04-25 16:12 | NUR ---
Patient tolerated her 1st HD tx with 750 mL fluid removal. Next planned tx tomorrow, [place] 04/26/21 @ 0800.
--- NOTE | 2021-04-25 18:14 | NUR ---
Patient resting in bedside recliner at this time. Patient is tired, appears to be alert and oriented but mildly forgetful. Dressing to fistula in left arm is CDI. Patient denies pain or needs at this time, call light within reach.
[2021-04-25 19:58] VITALS: BP 150/38; BP 155/50; PULSE 62; TEMP 98.3
--- NOTE | 2021-04-25 21:52 | NUR ---
Received report from RACHAEL Lucas. All medications verified and all questions answered. No concerns or complaints noted at this time. Patient resting in bed watching TV. Will resume care of patient at this time.
[2021-04-25 23:09] VITALS: BP 156/61; PULSE 66; TEMP 95
[2021-04-26 00:48] LABS: BODY FLUID PH (AMS) 8 (())
[2021-04-26 01:22] LABS: HEPATITIS B SURFACE ANTIBODY <2.0 (()); HEPATITIS B SURFACE ANTIGEN Negative (Negative); HEPATITIS C VIRUS ANTIBODY Negative (Negative)
[2021-04-26 03:28] VITALS: BP 157/53; PULSE 65; TEMP 98
[2021-04-26 07:19] VITALS: BP 149/51; PULSE 64; TEMP 99.3
[2021-04-26 10:06] LABS: ALBUMIN 3.1 gm/dL (3.5-5.0); C-REACTIVE PROTEIN 4.7 mg/dL (0.0-0.9); CALCIUM 8.5 mg/dL (8.4-10.2); CREATININE, serum 4.33 (0.52-1.25); PHOSPHOROUS 4.2 mg/dL (2.5-4.5); POTASSIUM 3.9 mmol/L (3.4-5.0)
[2021-04-26 10:20] LABS: BASO % 0.3 % (0.0-2.0); EOS # 0.5 (0.0-0.7); EOS % 4.3 % (0-4.0); GRAN # 8.3 (1.4-6.5); GRAN % 78.4 % (42.2-75.2); LYMPH # 0.9 (1.2-3.4); LYMPH % 8.7 % (20.0-51.0); MEAN CELL VOLUME 78 fl (80.0-100.0); MEAN CORPUSCULAR HGB CONC 32 g/dl (33.0-37.0); MONO # 0.8 (0.1-0.6); MONO % 7.8 % (1.7-9.3); REDCELL DISTRIBUTION WIDTH-CV 18.2 % (11.5-14.5)
[2021-04-26 11:00] LABS: HEMATOCRIT 25.7 % (37.0-47.0); HEMOGLOBIN 8.2 g/dl (12.5-16.0); MEAN CORPUSCULAR HEMOGLOBIN 25 pg (27.0-31.0)
[2021-04-26 11:09] LABS: PLATELET COUNT 231 K/mm3 (130-400)
--- NOTE | 2021-04-26 11:42 | NUR ---
Patient tolerated 2nd HD tx with 1L fluid removal. Next tx pending tomorrow, 04/27/21 morning labs.
[2021-04-26 12:00] VITALS: BP 113/67; PULSE 66; TEMP 98
[2021-04-26 15:02] VITALS: BP 153/63; PULSE 64; TEMP 98.6
--- NOTE | 2021-04-26 16:57 | NUR ---
Patient resting in bedside recliner at this time. Patient is sleepy but alert and oriented, answers questions appropriately. Patient remains a 2x assist to stand and transfer. Patient denies needs at this time, call light within reach.
--- NOTE | 2021-04-26 17:00 | NUR ---
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 SW to follow up with Dr. Lees.
[2021-04-26 20:18] VITALS: BP 149/53; PULSE 65; TEMP 99
--- NOTE | 2021-04-26 23:46 | NUR ---
Patient assessed around 2215. Alert and oriented, and able to make needs known. Denies having pain and discomfort at this time. Peripheral INT to right forearm. AV fistula to left upper arm with positive bruit and thrill. Denies having SOB and dyspnea. LS CTA. Respirations even and unlabored. HRR. Capillary refill less than 3 seconds. non-tenting skin turgor. BSAx4. Aboden soft and non-tender. 1+ edema BLE. Redness/excoriation under breasts, and in abdominal and groin folds. Desenex powder applied. Redness/excoriation to coccyx. 1+ edema BLE. Scaling/flaking BLE. One assist to transfer to bedside commode. Assisted back to recliner as requested. Voices no questions, needs, or concerns at this time. Resting in recliner with call light within reach.
[2021-04-26 23:58] VITALS: BP 144/46; PULSE 64; TEMP 98.4
--- NOTE | 2021-04-27 03:02 | NUR ---
Patient given PRN Benaryl around 0145 for itching as requested.
[2021-04-27 04:11] VITALS: BP 137/47; PULSE 62; TEMP 98.1
--- NOTE | 2021-04-27 05:43 | NUR ---
Patient states she was able to rest a little during the night. Stayed in recliner. Offered to assist into bed and put in chair position to see if it would be more comfortable, but declined. Voices no questions, needs, or concerns at this time. Resting in bed with call light within reach.
[2021-04-27 06:43] LABS: BASO % 0.3 % (0.0-2.0); EOS # 0.5 (0.0-0.7); GRAN # 6.2 (1.4-6.5); GRAN % 67.2 % (42.2-75.2); LYMPH # 1.5 (1.2-3.4); LYMPH % 16.2 % (20.0-51.0); MEAN CELL VOLUME 80 fl (80.0-100.0); MEAN CORPUSCULAR HGB CONC 31 g/dl (33.0-37.0); PLATELET COUNT 307 K/mm3 (130-400); RED BLOOD COUNT 3.12 M/mm3 (4.10-5.30); REDCELL DISTRIBUTION WIDTH-CV 18.6 % (11.5-14.5)
[2021-04-27 06:48] LABS: HEMATOCRIT 24.9 % (37.0-47.0); HEMOGLOBIN 7.7 g/dl (12.5-16.0); MEAN CORPUSCULAR HEMOGLOBIN 25 pg (27.0-31.0)
[2021-04-27 06:49] LABS: ALBUMIN 2.9 gm/dL (3.5-5.0); CALCIUM 8.6 mg/dL (8.4-10.2); CREATININE, serum 3.9 (0.52-1.25); POTASSIUM 3.8 mmol/L (3.4-5.0)
[2021-04-27 07:14] LABS: PHOSPHOROUS 3.6 mg/dL (2.5-4.5)
[2021-04-27 08:11] VITALS: BP 157/55; PULSE 53; TEMP 94.6
--- NOTE | 2021-04-27 12:50 | NUR ---
Patient tolerated 3rd HD tx today with 2L fluid removal. Next planned HD tx @ the [facility] with chairtime pending.
[2021-04-27 13:42] VITALS: BP 148/57; PULSE 61; TEMP 97.1
--- NOTE | 2021-04-27 14:16 | NUR ---
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 SW faxed clinical updates to Alida at [facility] who advised they can accept for a skilled stay if patient's plan is to continue with outpatient dialysis upon discharge.
[2021-04-27 16:20] VITALS: BP 148/54; PULSE 58; TEMP 98.1
--- NOTE | 2021-04-27 16:20 | NUR ---
Wildlife Biostation Research Ecologist followed up with patient about discharge plan. Patient is agreeable to rehab at either [facility] or [facility].
--- NOTE | 2021-04-27 19:32 | NUR ---
Awake, alert, oriented x 4, verbal w/ clear speech, patient has bruising on face, sitting up in chair, x 1 assist with movement, no s/s of hypo/hyper glycemia, VS stable, updated on plan of care.
[2021-04-27 19:47] VITALS: BP 149/40; PULSE 65; TEMP 98.1
[2021-04-27 23:03] VITALS: BP 134/42; PULSE 67; TEMP 98.4
[2021-04-28 03:52] VITALS: BP 142/43; PULSE 67; TEMP 98.8
[2021-04-28 07:56] LABS: PATHOLOGY DIFF REVIEW OK +
[2021-04-28 07:59] VITALS: BP 163/42; PULSE 71; TEMP 98.5
--- NOTE | 2021-04-28 08:00 | NUR ---
Patient resting in bedside recliner at this time. Patient assisted to bedside commode, x1 assist where patient was continent of bowel and bladder. Patient denies pain or needs, call light within reach.
[2021-04-28 08:58] LABS: BASO # 0.1 (0.0-0.2); BASO % 0.5 % (0.0-2.0); EOS # 0.5 (0.0-0.7); EOS % 5.1 % (0-4.0); GRAN % 68.8 % (42.2-75.2); LYMPH # 1.6 (1.2-3.4); LYMPH % 15.8 % (20.0-51.0); MEAN CELL VOLUME 78 fl (80.0-100.0); MEAN CORPUSCULAR HGB CONC 31 g/dl (33.0-37.0); MONO # 0.9 (0.1-0.6); MONO % 9.1 % (1.7-9.3); PLATELET COUNT 233 K/mm3 (130-400); RED BLOOD COUNT 3.34 M/mm3 (4.10-5.30); REDCELL DISTRIBUTION WIDTH-CV 18.6 % (11.5-14.5)
[2021-04-28 09:05] LABS: CALCIUM 8.7 mg/dL (8.4-10.2); CREATININE, serum 2.94 (0.52-1.25); POTASSIUM 4.3 mmol/L (3.4-5.0); TOTAL PROTEIN 6.2 gm/dL (6.4-8.2)
[2021-04-28 09:17] LABS: HEMATOCRIT 26.1 % (37.0-47.0); MEAN CORPUSCULAR HEMOGLOBIN 24 pg (27.0-31.0)
[2021-04-28] MEDS ORDERED: MONODOX100 PO (10:41)
[2021-04-28] MEDS ORDERED: PHOSLO667 MG PO (10:44)
[2021-04-28] MEDS ORDERED: LASIX 40MG TABL40 MG PO (10:45)
[2021-04-28 12:00] VITALS: BP 147/60; PULSE 70; TEMP 98.5
--- NOTE | 2021-04-28 12:04 | NUR ---
Patient tolerated 4th HD tx with 2L fluid removal. Next planned HD tx @ [facility] on MWF @ 1500.
--- NOTE | 2021-04-28 14:30 | NUR ---
Patient transferred to wheelchair from recieving facilinty. INT removed, catheter intact, hemostasis achieved.
--- NOTE | 2021-04-28 15:48 | NUR ---
Retail Leader spoke with MIRANDA Samayoa who advised patient is ready to be discharged today to [facility]. SANG contacted Alida at [facility] and faxed clinical updates. Upon review, Alida advised they can accept today and transport time was set for 1400. SANG contacted patient's daughter, Griselda to provide discharge disposition and transport time. Griselda is in agreement. SANG faxed discharge orders and negative COVID results to Alida at [facility].
== END 2021-04-28 14:30 | DRG 682 ==
LOC: COL.ER 04:36 → SURG 08:46
PROVIDERS: Emergency Medicine; Internal Medicine Pulmonary Disease; ADMIT Internal Medicine Nephrology
PROC: 0W993ZZ Drainage of Right Pleural Cavity, Percutaneous Approach (ICD-10-PCS; principal; 2021-04-25)
PROC: 5A1D70Z Performance of Urinary Filtration, Intermittent, Less than 6 Hours Per Day (ICD-10-PCS; 2021-04-28)
DX: I12.0 Hypertensive chronic kidney disease with stage 5 chronic kidney disease or end stage renal disease (principal); N18.6 End stage renal disease; N17.9 Acute kidney failure, unspecified; E87.2 Acidosis; D63.1 Anemia in chronic kidney disease; E11.22 Type 2 diabetes mellitus with diabetic chronic kidney disease; R79.89 Other specified abnormal findings of blood chemistry; I27.20 Pulmonary hypertension, unspecified; E87.70 Fluid overload, unspecified; E66.9 Obesity, unspecified; E03.9 Hypothyroidism, unspecified; K21.9 Gastro-esophageal reflux disease without esophagitis; M19.90 Unspecified osteoarthritis, unspecified site; I48.91 Unspecified atrial fibrillation; R77.8 Other specified abnormalities of plasma proteins; Z79.4 Long term (current) use of insulin; Z79.82 Long term (current) use of aspirin; Z88.6 Allergy status to analgesic agent; Z88.1 Allergy status to other antibiotic agents; Z88.0 Allergy status to penicillin; Z88.8 Allergy status to other drugs, medicaments and biological substances; Z86.73 Personal history of transient ischemic attack (TIA), and cerebral infarction without residual deficits; Z68.29 Body mass index [BMI] 29.0-29.9, adult
CPT/HCPCS: J1644; J1756; J1815; J7030; Q5105; Q5106

== ENCOUNTER 2022-01-03 16:46 | Emergency (ER) | payer MEDICARE ==
[~2022-01-03] VITALS: Ht 165.1 cm; Wt 75.9 kg
[~2022-01-03 16:46] MED LIST changes: +MONODOX100 PO; +PHOSLO667 MG PO
[2022-01-03 16:50] VITALS: TEMP 98.5
[2022-01-03 17:38] LABS: MEAN CELL VOLUME 94 fl (80.0-100.0); MEAN CORPUSCULAR HEMOGLOBIN 30 pg (27-31); MEAN CORPUSCULAR HGB CONC 32 g/dl (33.0-37.0); MEAN PLATELET VOLUME 11.2 fl (7.4-10.4); PLATELET COUNT 297 K/mm3 (130-400); REDCELL DISTRIBUTION WIDTH-CV 14.5 % (11.5-14.5)
[2022-01-03 17:52] LABS: BAND 4 % (0-10); EOSINOPHIL 8 % (0-4); LYMPHOCYTE 20 % (20.0-51.0); NEUTROPHILS 58 % (42.0-75.2); PLATELET ESTIMATE NORMAL (NORMAL)
[2022-01-03 17:53] LABS: BURR CELLS 1+
[2022-01-03 17:55] LABS: POIKILOCYTOSIS 1+
[2022-01-03 17:58] LABS: ALBUMIN 2.9 gm/dL (3.4-4.8); BILIRUBIN,TOTAL 0.5 mg/dL (0.2-1.2); CREATININE, serum 4.06 mg/dL (0.57-1.11); POTASSIUM 4.1 mmol/L (3.5-4.5)
[2022-01-03] MEDS ORDERED: PERCOCET 325 MG1 TA2 PO ×2 (19:01)
[2022-01-03] MEDS ORDERED: ULTRAM 50MG TAB50 MG PO (19:22)
[2022-01-03 19:46] VITALS: BP 154/59; PULSE 63
== END 2022-01-03 19:20 | disposition home or self-care (01) ==
LOC: COL.ER 16:46
PROVIDERS: Personal Emergency Response Attendant
DX: M25.562 Pain in left knee (principal); I48.91 Unspecified atrial fibrillation; I10 Essential (primary) hypertension; E11.22 Type 2 diabetes mellitus with diabetic chronic kidney disease; N18.9 Chronic kidney disease, unspecified; I25.10 Atherosclerotic heart disease of native coronary artery without angina pectoris; E21.3 Hyperparathyroidism, unspecified; Z79.4 Long term (current) use of insulin; Z79.890 Hormone replacement therapy

== ENCOUNTER 2022-04-10 17:29 | Inpatient (IN) | payer MEDICARE ==
[~2022-04-10] VITALS: Ht 160 cm; Wt 87.1 kg
[~2022-04-10 17:29] MED LIST changes: +PERCOCET 325 MG1 TA2 PO; +ULTRAM 50MG TAB50 MG PO
[2022-04-10 19:19] LABS: HEMATOCRIT 39.8 % (37.0-47.0); HEMOGLOBIN 12.3 g/dl (12.5-16.0); MEAN CELL VOLUME 100 fl (80.0-100.0); MEAN CORPUSCULAR HEMOGLOBIN 31 pg (27-31); MEAN CORPUSCULAR HGB CONC 31 g/dl (33.0-37.0); MEAN PLATELET VOLUME 11.5 fl (7.4-10.4); PLATELET COUNT 250 K/mm3 (130-400); RED BLOOD COUNT 3.99 M/mm3 (4.10-5.30); REDCELL DISTRIBUTION WIDTH-CV 13.3 % (11.5-14.5)
[2022-04-10 19:36] LABS: ALBUMIN 2.8 gm/dL (3.4-4.8); BILIRUBIN,TOTAL 0.4 mg/dL (0.2-1.2); CALCIUM 8.5 mg/dL (8.4-10.2); CREATININE, serum 7.94 mg/dL (0.57-1.11); POTASSIUM 5.7 mmol/L (3.5-4.5); TOTAL PROTEIN 6.6 gm/dL (6.2-8.1)
[2022-04-10 19:45] LABS: TROPONIN-I 0.056 ng/mL (0.00-0.033)
[2022-04-10 20:04] LABS: BAND 18 % (0-10); LYMPHOCYTE 2 % (20.0-51.0); NEUTROPHILS 75 % (42.0-75.2); PLATELET ESTIMATE NORMAL (NORMAL)
[2022-04-10 20:06] LABS: HYPOCHROMIA 3+
[2022-04-10 20:33] LABS: PH 7 (5-8); URINE APPEARANCE Turbid (CLEAR/HAZY); URINE BILIRUBIN Negative (NEGATIVE); URINE COLOR OTHER (YELLOW); URINE GLUCOSE Negative (NEGATIVE); URINE KETONE Negative (NEGATIVE); URINE PROTEIN(semi-quant) 2+ (NEGATIVE)
[2022-04-10 20:34] LABS: URINE BLOOD 3+ (NEGATIVE); URINE LEUKOCYTE ESTERASE 2+ (NEGATIVE); URINE NITRATE Negative (NEGATIVE)
--- NOTE | 2022-04-10 22:00 | NUR ---
PT ARRIVED FROM ED.
[2022-04-10 22:04] VITALS: BP 113/32; PULSE 68; TEMP 99.5
[2022-04-10] MEDS ORDERED: SENNA-LAX8.6 MG PO (22:35)
[2022-04-10] MEDS ORDERED: HUMALOG100 U/ML SQ (22:37)
--- NOTE | 2022-04-10 22:56 | NUR ---
NOTIFIED PROVIDER OF CRITICAL PT TROPONIN VALUE.
[2022-04-10 23:10] VITALS: TEMP 98.4
[2022-04-11] VITALS (10 sets, daily range): BP systolic 117–153; BP diastolic 36–61; PULSE 69–82; TEMP 98.6–102.1
--- NOTE | 2022-04-11 03:26 | NUR ---
Pt transferred from ED to unit. Alert and oriented, daughter at bedside. Transferred from [place] to bed via slide board. Calm and cooperative. Pt denies acute pain or chest pain. Admission intake and admission assessment completed. Med rx reviewed and completed. Allx confirmed. COVID and Infectious disease screenings completed. VS stable on admission. Was reported that pt had temp in ED and was given prn tylenol multiple times, pt's temp decreased to 98.6 on the unit. No diaphoresis or shakiness. On room air. No SOB at rest. Noted some breakdown on the sacral area. Noted a stage 2 pressure ulcer on the pt's left buttock. Verified with second nurse. Applied a sacral dressing and barrier cream to the site. Turning the pt every 2 hours. Noted a stage 1 pressure ulcer on the right buttock. 1+ BLE edema noted. Followed provider order to insert jacobsen catheter. Placed catheter on 1st try. Pt had no urine output when placing the jacobsen. Verified jacobsen catheter placement with a second nurse, who agreed the catheter appeared to be in the correct area. Was reported to be that pt was in and out cath'd in ED prior to coming upstairs. Will continue to monitor for UO. Pt receving NS @ 50 ml/hr and IV antibx. FSBS 212. Pt reports no questions at this time, will continue to monitor.
--- NOTE | 2022-04-11 05:04 | NUR ---
Pt remains alert and oriented when awake, resting now, alert spontaneously to voice. Continuing to assess q4 neuro checks. Turning q2hrs. Pt still has had no output into the jacobsen catheter. Assessed with the charge nurse the catheter insertion site. Catheter is in place, with balloon blown up. IV fluids continuing at 50 ml/hr. Encouraging pt to have PO intake. Pt denies pain. No adverse events overnight, continuing to monitor.
--- NOTE | 2022-04-11 08:25 | NUR ---
Scheduled medications given. Shift assessment performed. IV fluids running as ordered. Taylor catheter in place, no kinks in tubing, securment device in use. No output noted. Patient A&O. Denies any pain, discomfort, SOA, or further needs a this time. Denies any N/V. Call light in reach. Fall percautions in place. Pericare and mepilex placed on areas of skin breakdown located on bilateral buttock.
[2022-04-11 09:12] LABS: HEMATOCRIT 39.2 % (37.0-47.0); HEMOGLOBIN 12.2 g/dl (12.5-16.0); MEAN CELL VOLUME 97 fl (80.0-100.0); MEAN CORPUSCULAR HEMOGLOBIN 30 pg (27-31); MEAN CORPUSCULAR HGB CONC 31 g/dl (33.0-37.0); MEAN PLATELET VOLUME 11.7 fl (7.4-10.4); PLATELET COUNT 243 K/mm3 (130-400); RED BLOOD COUNT 4.05 M/mm3 (4.10-5.30); REDCELL DISTRIBUTION WIDTH-CV 13.4 % (11.5-14.5)
[2022-04-11 09:25] LABS: ALBUMIN 2.5 gm/dL (3.4-4.8); CALCIUM 8.1 mg/dL (8.4-10.2); CREATININE, serum 8.74 mg/dL (0.57-1.11); PHOSPHOROUS 4.9 mg/dL (2.3-4.7); POTASSIUM 4.8 mmol/L (3.5-4.5)
[2022-04-11 09:32] LABS: BAND 16 % (0-10); LYMPHOCYTE 7 % (20.0-51.0); NEUTROPHILS 73 % (42.0-75.2); PLATELET ESTIMATE NORMAL (NORMAL)
--- NOTE | 2022-04-11 13:05 | NUR ---
Robotics Application Engineer met with patient to discuss discharge planning. Patient lives in [place] with her daughter, Griselda (ph#[phone]) [address] Palafox for primary care. Patient obtains medications from [facility] and advised Griselda picks them up for her. Patient has a walker and wheelchair at home, but advised she has been using her wheelchair more lately. Patient states she is normally independent with ADLS but has had more difficulty over the last few days. PT/OT ordered for patient. Advance Directives located in EMR which designate her daughter, Griselda and granddaughter, Sylwia as DPOA-HC. Patient reports she plans to return home at time of discharge and may be interested in Home Health, however stated Griselda does not like to have people in the home due to COVID. Discharge Plan: Home, pending PT/OT angeline
--- NOTE | 2022-04-11 16:23 | NUR ---
Critical troponin called to JOSÉ LUIS Ferrer who read back the results.
--- NOTE | 2022-04-11 19:59 | NUR ---
PT'S ORAL TEMP 102.1. NOTIFIED PROVIDER WHO SAID TO ADMINISTER PRN TYLENOL AND CONTINUE WITH IV ANTIBX ORDERED.
--- NOTE | 2022-04-11 22:12 | NUR ---
Pt alert and oriented at the beginning of the evening, but has started to have some AMS. Pt can correctly answer all orientation questions, but continues to try to pull off her tele monitor/gown and keeps stating she wants to sit up. Pt also has difficult time finishing her sentances, but is easily reoriented. Pt denies pain currently. Pt had a temp of 102.1F. Notified Dr. Lees, who stated to administer the ordered prn tylenol and continue with IV antibx. Adminstered prn tylenol and reassessed temp after 1 hour and temp decreased to 100.7. Reassessed again after 2 hours and temp dropped to 100.1. Will continue to assess temp and administer tylenol as needed. Pt also began to have some shakiness/shivering around 2100. Reports she feels cold. Covered pt with extra blankets and assessed VS. VS WNL and temp was 100.1. Pt is resting now quietly. Shift assessment performed. Medications administered per orders and education provided. Was told in report by dayshift that pt had jacobsen removed and was able to void after. Pt also had multiple episodes of diarrhea during dayshift. No episodes of loose stool yet this evening, will collect stool sample if loose stool occurs. Pt reports no questions at this time, will continue to monitor.
[2022-04-12] VITALS (105 sets, daily range): BP systolic 90–143; BP diastolic 24–93; PULSE 52–84; TEMP 97.6–99.3; O2SAT 80–100
--- NOTE | 2022-04-12 04:51 | NUR ---
Pt remains alert and oriented when awake, sleeping currently. Pt's slight AMS has resolved and shivering has resolved. Temperature has decreased to 97.7 after 2 doses of prn tylenol. Other VS WNL. SCD's on. Pt IV fluids completed. Tolerating PO. No episodes of diarrhea overnight. GI panel remains uncollected. Pt denies pain/SOB. Remains on room air. Pt does not report any questions this morning, will continue to monitor.
[2022-04-12 06:30] LABS: HEMOGLOBIN 11.6 g/dl (12.5-16.0); MEAN CELL VOLUME 96 fl (80.0-100.0); MEAN CORPUSCULAR HEMOGLOBIN 31 pg (27-31); MEAN CORPUSCULAR HGB CONC 32 g/dl (33.0-37.0); MEAN PLATELET VOLUME 11.9 fl (7.4-10.4); PLATELET COUNT 255 K/mm3 (130-400); RED BLOOD COUNT 3.77 M/mm3 (4.10-5.30); REDCELL DISTRIBUTION WIDTH-CV 13.3 % (11.5-14.5)
[2022-04-12 06:33] LABS: HEMATOCRIT 36.1 % (37.0-47.0)
[2022-04-12 06:42] LABS: ALBUMIN 2.1 gm/dL (3.4-4.8); CALCIUM 7.6 mg/dL (8.4-10.2); CREATININE, serum 9.81 mg/dL (0.57-1.11)
[2022-04-12 07:09] LABS: PLATELET ESTIMATE NORMAL (NORMAL)
[2022-04-12 07:39] LABS: BAND 14 % (0-10); EOSINOPHIL 1 % (0-4); LYMPHOCYTE 8 % (20.0-51.0); NEUTROPHILS 74 % (42.0-75.2)
--- NOTE | 2022-04-12 09:43 | NUR ---
PT RESTING IN BED. MORNING MEDICATIONS GIVEN. SHIFT ASSESSMENT COMPLETED. PT HAS STAGE II SORE TO BUTTOCKS, WELL X2 ADDITIONAL OPEN SORES. BOTTOM IS REDDENED. PT A&O X4 AT THIS TIME. PT ASSISTED INTO WHEELCHAIR FOR DIALYSIS, GAIT IN WEAK. WILL CONTINUE TO MONITOR. AT DIALYSIS AT THIS TIME.
--- NOTE | 2022-04-12 12:09 | NUR ---
Vancomycin Follow-up Pharmacy Note Current regimen: Vancomycin based on levels Vancomycin random level: 13.02 (pre-dialysis level) Adjustments: Will give Vancomycin 1 gm IV x1 after dialysis today. Pharmacy will continue to closely monitor.
--- NOTE | 2022-04-12 13:32 | NUR ---
PT is recommending that the patient will likely need post-acute rehab. They noted that she was very weak and incontinent of stool. SANG updated JOSÉ LUIS Samayoa, of this. Danita plans to find out the patient's chair time at dialysis. SW contacted the patient's daughter, Griselda, to discuss their recommendation. Griselda states that she cannot make that decision at this time. She would ultimately like to have the patient home and the patient would like to come home, but she will need to see how the patient is doing closer to discharge. She states that the patient gets weak and confused when she does not have dialysis and has an infection. Griselda states that if the patient is not able to follow her instructions then or get in and out of her wheelchair, then she would consider the patient going to a SNF. The only place she would consider the patient going to is [facility]. Griselda was open to SW sending a referral to [facility] now. Griselda states that she has not had an update from the doctor or hospital yet and would prefer to get an update from the doctor or PERINATOLOGY PHYSICIAN. SANG notified JOSÉ LUIS Samayoa. SANG contacted and faxed a referral to Kahlil at [facility]. *Discharge plan: SNF vs home with daughter*
[2022-04-12 20:47] LABS: ARTERIAL BLD GAS O2 SATURATION 96.8 % (92-100); ARTERIAL BLD GAS TCO2 CT 20.9; ARTERIAL BLOOD GAS BASE EXCESS -4.6 (-2-2); ARTERIAL BLOOD GAS HCO3 19.8 meq/L (22-26); ARTERIAL BLOOD GAS PCO2 34.4 mmHg (35-45); ARTERIAL BLOOD GAS PO2 94.5 mmHg (80-100); ARTERIAL BLOOD GAS pH 7.38 (7.35-7.45)
--- NOTE | 2022-04-12 21:20 | NUR ---
Received report from medical nurse
--- NOTE | 2022-04-12 21:45 | NUR ---
Patient arrives to ICU room 6 via medical bed. Patient is alert upon arrival and answers all orientation questions appropriately. Significant left sided weakness noted to left upper and lower extremities; trace movement observed. Patient able to lift and hold right upper and lower extremities. No facial droop or slurring noted. Inital BP 91/26, other vitals within normal limits. She arrives receiving 2L oxygen via nasal cannula, tolerating well. 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 Bruit and thrill present/auscultated.
--- NOTE | 2022-04-12 22:00 | NUR ---
Patient's belongings brought from medical floor include a robe, a nightgown, and a pair of slippers. No jewelry noted in belongings or on patient's person.
[2022-04-12 22:44] LABS: HEMOGLOBIN 11.1 g/dl (12.5-16.0); MEAN CELL VOLUME 100 fl (80.0-100.0); MEAN CORPUSCULAR HEMOGLOBIN 31 pg (27-31); MEAN CORPUSCULAR HGB CONC 31 g/dl (33.0-37.0); MEAN PLATELET VOLUME 11.9 fl (7.4-10.4); PLATELET COUNT 259 K/mm3 (130-400); RED BLOOD COUNT 3.61 M/mm3 (4.10-5.30); REDCELL DISTRIBUTION WIDTH-CV 13.7 % (11.5-14.5)
[2022-04-12 22:45] LABS: HEMATOCRIT 36.1 % (37.0-47.0)
--- NOTE | 2022-04-12 22:48 | NUR ---
Walked in to assess patient around 1930. Pt was very lethargic. Pt was able to answer who she was and where she was, but would not follow any commands. Pt was unable to lift her LUE/LLE at all. She was able to move her RUE on the bed, but unable to move the RLE. Pt had a temp of 99.3, BP was 90/22, HR was 83, satting 88-89% on room air, blood sugar was 106. We applied 2L NC to the pt, and she increased to 97% O2. Pt was unable to take any evening medications when attempted. Pt was unable to swallow and was very lethargic/drowsy. Pills charted as not given. I notified Dr. Lees of the patient's condition and vital signs. He gave me a verbal phone order to administer a 500 ml fluid bolus of NS and to order a stat ABG. Orders followed per protocol. Dr. Lees also notified houseperson to put in a hospitalist consult. I notified the hospitalist and put in the order. washing and screening plant supervisor and the medical charge nurse were notified of the situation. The NS bolus was ran. I notified respiratory therapy of the stat ABG order. We continued to assess the pt's BP every 5 minutes. The last BP we took after the fluid bolus was completed was 94/27. HR remained in the 70-80's NSR. Pt was taken down for an ordered CT scan and then brought to ICU. I gave verbal report by phone to the recieving ICU nurse.
[2022-04-12 22:49] LABS: INR 1.2 (0.8-3.0)
[2022-04-12 22:59] LABS: CALCIUM 7.8 mg/dL (8.4-10.2); CREATININE, serum 6.31 mg/dL (0.57-1.11); POTASSIUM 3.8 mmol/L (3.5-4.5)
[2022-04-12 23:14] LABS: TROPONIN-I 0.149 ng/mL (0.00-0.033)
[2022-04-12 23:15] LABS: BAND 8 % (0-10); HYPOCHROMIA 1+; LYMPHOCYTE 3 % (20.0-51.0); NEUTROPHILS 79 % (42.0-75.2); PLATELET ESTIMATE NORMAL (NORMAL)
[2022-04-12 23:16] LABS: OVALOCYTES 1+
--- NOTE | 2022-04-12 23:45 | NUR ---
ED physician Dr. Busby at bedside for central line insertion at 2230. Insertion of LIJ triple lumen completed at 2240. Chest XRAY obtained to verify placement and is read by Dr. Busby.
[2022-04-13] VITALS (639 sets, daily range): BP systolic 92–161; BP diastolic 35–68; PULSE 70–81; TEMP 97.7–100; O2SAT 38–100
--- NOTE | 2022-04-13 00:13 | NUR ---
Patient leaves for surgery with anesthesia and OR nurse at this time.
--- NOTE | 2022-04-13 00:46 | NUR ---
PATIENT RETURNS FROM SURGERY. ALERT BUT DROWSY, FOLLOWING VERBAL COMMANDS. IMPROVED MOBILITY NOTED TO THE LEFT UPPER AND LOWER EXTREMITIES; LEFT EXTREMITIES ARE STILL WEAKER THAN THE RIGHT, BUT PT ABLE TO BETTER LIFT AND HOLD THAN PRIOR ASSESSMENT.
[2022-04-13 06:09] LABS: COLLECTION METHOD CATHETER
[2022-04-13 06:21] LABS: HEMOGLOBIN 11.2 g/dl (12.5-16.0); MEAN CORPUSCULAR HEMOGLOBIN 31 pg (27-31); MEAN CORPUSCULAR HGB CONC 32 g/dl (33.0-37.0); PLATELET COUNT 261 K/mm3 (130-400); RED BLOOD COUNT 3.63 M/mm3 (4.10-5.30); REDCELL DISTRIBUTION WIDTH-CV 13.7 % (11.5-14.5)
[2022-04-13 06:32] LABS: HEMATOCRIT 34.6 % (37.0-47.0)
[2022-04-13 06:34] LABS: ALBUMIN 2.2 gm/dL (3.4-4.8); BILIRUBIN,TOTAL 0.8 mg/dL (0.2-1.2); CALCIUM 8.1 mg/dL (8.4-10.2); CREATININE, serum 6.59 mg/dL (0.57-1.11); POTASSIUM 4.2 mmol/L (3.5-4.5); TOTAL PROTEIN 5.7 gm/dL (6.2-8.1)
[2022-04-13 06:39] LABS: MEAN CELL VOLUME 95 fl (80.0-100.0)
[2022-04-13 07:06] LABS: PH 7 (5-8); URINE APPEARANCE Turbid (CLEAR/HAZY); URINE BILIRUBIN Negative (NEGATIVE); URINE BLOOD 2+ (NEGATIVE); URINE COLOR Red (YELLOW); URINE GLUCOSE Negative (NEGATIVE); URINE KETONE Trace (NEGATIVE); URINE LEUKOCYTE ESTERASE 1+ (NEGATIVE); URINE NITRATE Positive (NEGATIVE); URINE PROTEIN(semi-quant) 2+ (NEGATIVE); URINE UROBILINOGEN Negative (NEGATIVE)
[2022-04-13 07:07] LABS: AMORPHOUS CRYSTAL Present (NOT PRESENT); SQUAMOUS EPITHELIAL None Seen /hpf (0-10); URINE BACTERIA Rare /hpf (NONE SEEN); URINE RBC >50 /hpf (0-2)
[2022-04-13 07:19] LABS: BAND 11 % (0-10); NEUTROPHILS 83 % (42.0-75.2)
[2022-04-13 07:21] LABS: PLATELET ESTIMATE NORMAL (NORMAL)
[2022-04-13 07:22] LABS: BURR CELLS 1+
[2022-04-13 07:23] LABS: HYPOCHROMIA 1+; LYMPHOCYTE 4 % (20.0-51.0); OVALOCYTES 1+
--- NOTE | 2022-04-13 08:00 | NUR ---
ASSESSMENT COMPLETE.VSS. PT STILL ON LEVOPHED. PT IS PLEASANT AND REQUEST ITEMS NEEDED AND USES CALL LIGHT. ALL QUESTIONS ANSWERED.
[2022-04-13 09:32] LABS: SQUAMOUS EPITHELIAL 0-2 /hpf (0-10); URINE BACTERIA None Seen /hpf (NONE SEEN)
[2022-04-13 09:42] LABS: COLLECTION METHOD CATHETER
--- NOTE | 2022-04-13 12:00 | NUR ---
Physical Therapy in room: PT was able to stand and a [facility] skin assessment completed. PT states that she lives at home with her daughter and independent, only requires help with bathing from her daughter. PT states that she sits in a chair most of the time. Wounds noted on arrival to [facility]. Left gluteal cleft Stage II pressure ulcer aquacel foam placed 2299 Right gluteal cleft stage II pressure ulcer aquacel foam placed 04/13 1200 Right paraneal upper thigh Stage II pressure ulcer aquacell foam placed 04/13 1200 ABD fold excoriation. clean ALEXANDREA Breast folds excoriation. 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
--- NOTE | 2022-04-13 13:16 | NUR ---
Paralegal Specialist faxed clinical updates to Alida at [facility].
[2022-04-14] VITALS (7 sets, daily range): BP systolic 114–163; BP diastolic 45–71; PULSE 69–96; TEMP 97.8–98.2
[2022-04-14 04:30] LABS: HEMOGLOBIN 10.2 g/dl (12.5-16.0); MEAN CELL VOLUME 98 fl (80.0-100.0); MEAN CORPUSCULAR HEMOGLOBIN 31 pg (27-31); MEAN CORPUSCULAR HGB CONC 31 g/dl (33.0-37.0); MEAN PLATELET VOLUME 11.7 fl (7.4-10.4); PLATELET COUNT 206 K/mm3 (130-400); RED BLOOD COUNT 3.34 M/mm3 (4.10-5.30); REDCELL DISTRIBUTION WIDTH-CV 14.1 % (11.5-14.5)
[2022-04-14 04:41] LABS: HEMATOCRIT 32.6 % (37.0-47.0)
[2022-04-14 04:44] LABS: ALBUMIN 1.9 gm/dL (3.4-4.8); BILIRUBIN,TOTAL 0.6 mg/dL (0.2-1.2); CALCIUM 7.5 mg/dL (8.4-10.2); CREATININE, serum 7.18 mg/dL (0.57-1.11); POTASSIUM 3.8 mmol/L (3.5-4.5); TOTAL PROTEIN 5.4 gm/dL (6.2-8.1)
[2022-04-14 05:19] LABS: BAND 17 % (0-10); BURR CELLS 2+; EOSINOPHIL 3 % (0-4); HYPOCHROMIA 2+; LYMPHOCYTE 7 % (20.0-51.0); NEUTROPHILS 67 % (42.0-75.2); PLATELET ESTIMATE NORMAL (NORMAL)
--- NOTE | 2022-04-14 07:41 | NUR ---
BEDSIDE SHIFT REPORT RECEIVED FROM GERALDO CANO. NO LINES CURRENTLY RUNNING. MEEK DRAINING APPROPRIATELY. PT CURRENTLY RESTING IN BED
--- NOTE | 2022-04-14 19:35 | NUR ---
Patient back from Dialysis- did get report from Marline CANO in ICU-- pt went straight from ICU to Dialysis to then the medical floor. Pt alert/oriented x4, VSS, Denies pain at this time, Taylor with bloody urine- scant amount,
--- NOTE | 2022-04-14 20:04 | NUR ---
Patient tolerated HDTX with 2.5 L removed of fluid. Next planned HDTX on Saturday04/16/2022 at 0830.
[2022-04-15] VITALS (7 sets, daily range): BP systolic 108–154; BP diastolic 39–59; PULSE 79–96; TEMP 97.6–98.5
--- NOTE | 2022-04-15 06:01 | NUR ---
Slept well all night- no requests, Tele on- afib, rate controlled, VSS
[2022-04-15 07:01] LABS: HEMOGLOBIN 10.9 g/dl (12.5-16.0); MEAN CELL VOLUME 94 fl (80.0-100.0); MEAN CORPUSCULAR HEMOGLOBIN 30 pg (27-31); MEAN CORPUSCULAR HGB CONC 32 g/dl (33.0-37.0); MEAN PLATELET VOLUME 12.2 fl (7.4-10.4); PLATELET COUNT 207 K/mm3 (130-400); RED BLOOD COUNT 3.62 M/mm3 (4.10-5.30); REDCELL DISTRIBUTION WIDTH-CV 14.1 % (11.5-14.5)
[2022-04-15 07:19] LABS: ALBUMIN 1.9 gm/dL (3.4-4.8); BILIRUBIN,TOTAL 0.7 mg/dL (0.2-1.2); CREATININE, serum 5.75 mg/dL (0.57-1.11); POTASSIUM 4.2 mmol/L (3.5-4.5); TOTAL PROTEIN 5.3 gm/dL (6.2-8.1)
[2022-04-15 07:22] LABS: HEMATOCRIT 34.1 % (37.0-47.0)
[2022-04-15 08:15] LABS: EOSINOPHIL 1 % (0-4); LYMPHOCYTE 13 % (20.0-51.0); NEUTROPHILS 82 % (42.0-75.2)
[2022-04-15 08:20] LABS: HYPOCHROMIA 1+; PLATELET ESTIMATE NORMAL (NORMAL)
[2022-04-15 08:23] LABS: BURR CELLS 1+
--- NOTE | 2022-04-15 09:30 | NUR ---
PT LAYING SUPINE IN BED ON ROOM AIR. PT STATES THAT SHE WOULD LIKE TO BE RESPOSITIONED BECAUSE SHE IS "NOT VERY COMFY." PT WAS MOVED UP IN THE BED AND RESPOSITIONED ON RIGH SIDE. PILLOW WAS PLACED UNDER BUTT TO HELP KEEP PRESSURE OFF OF WOUNDS ON BACK SIDE. PT STATES THAT SHE CAN NOT REACH THE BED CONTROLS TO MOVE THE BED. REMOTE WAS GIVEN TO PT SO THAT SHE CAN EASILY MOVE THE BED AND ADJUST IT HOW SHE WOULD LIKE. PT VOICES UNDERSTANDING AND IS ABLE TO CONTROLS. PT STATES NO OTHER PAIN OR CONCERNS AT THIS TIME. CALL LIGHT IS WITHIN REACH.
--- NOTE | 2022-04-15 18:24 | NUR ---
PT SITTING UP IN CHAIR ON ROOM AIR. PT STATES THAT SHE IS READY TO GET BACK INTO BED SOON. MEEK IS DRAINING CLOUDY BLOOD TINGE URINE AT BEDSIDE. CALL LIGHT IS WITHIN REACH.
--- NOTE | 2022-04-16 00:07 | NUR ---
Pt alert and oriented this evening, resting quietly in bed. Improvement noted in alertness compared to evening. Pt speaking and following commands. Pt does not report pain at this time. Frequently repositioning pt every 2 hours and applying ordered powder to excoriated areas. Shift assessment performed. Medications administered per orders and education provided. 1+ edema noted im BLE. Taylor catheter in place with poor output. Urine color is red. Stage 2 ulcer noted on rigth buttocl. Stage 3 ulcer noted on left buttock. Powder and barrier cream applied. Central line noted in left jugular. Dressing clean and intact. Pt tolerated PO pills and nourishment. Pt reports no questions at this time, will continue to monitor.
[2022-04-16 03:35] VITALS: BP 126/47; PULSE 80; TEMP 98.7
--- NOTE | 2022-04-16 06:20 | NUR ---
No adverse events overnight. Pt remains alert and oriented. Tolerating PO. Continued on IV antibx. Afebrile. VS stable. Continuing to turn pt every 2 hours or more frequently. Re-dressing bottom, applying barrier cream/powder to excoriated areas as needed. Continuing to assess q4 neuro checks. Jacobsen had little to no output overnight. Output was red. Was notified by dayshift that pt has had poor urine output via jacobsen catheter. No other concerns at this time, will continue to monitor.
[2022-04-16 06:42] LABS: BASO # 0.1 K/mm3 (0.0-0.2); BASO % 0.5 % (0.0-2.0); EOS # 0.6 K/mm3 (0.0-0.7); EOS % 3.8 % (0.0-4.0); GRAN # 11.3 K/mm3 (1.4-6.5); GRAN % 76.9 % (42.2-75.2); HEMOGLOBIN 11.1 g/dl (12.5-16.0); LYMPH # 1.7 K/mm3 (1.2-3.4); LYMPH % 11.5 % (20.0-51.0); MEAN CELL VOLUME 96 fl (80.0-100.0); MEAN CORPUSCULAR HEMOGLOBIN 30 pg (27-31); MEAN CORPUSCULAR HGB CONC 31 g/dl (33.0-37.0); MEAN PLATELET VOLUME 12.4 fl (7.4-10.4); MONO % 6.6 % (1.7-9.3); PLATELET COUNT 185 K/mm3 (130-400); RED BLOOD COUNT 3.69 M/mm3 (4.10-5.30); REDCELL DISTRIBUTION WIDTH-CV 14.1 % (11.5-14.5)
[2022-04-16 06:47] LABS: HEMATOCRIT 35.3 % (37.0-47.0)
[2022-04-16 07:31] VITALS: BP 118/47; PULSE 76; TEMP 98.4
[2022-04-16 08:44] LABS: PATHOLOGY DIFF REVIEW OK
--- NOTE | 2022-04-16 10:55 | NUR ---
CARLO Bryant notified of critical troponin of 0.055. No new orders received.
[2022-04-16 11:42] VITALS: BP 121/42; PULSE 81; TEMP 97.5
--- NOTE | 2022-04-16 11:56 | NUR ---
SW informed that patient could potentially be DC'd tomorrow. SW called [facility] to check on refer status. Facility staff stated due to room availablity patient could not be accepted. Staff member stated that if there were any DC changes at her facility to she would call back and inform SW team. SW will continue to follow and continue to check on other referred statuses.
[2022-04-16 15:45] VITALS: BP 124/39; PULSE 78; TEMP 97.8
--- NOTE | 2022-04-16 18:05 | NUR ---
Taylor cath DCd at this time-removed 10mls from balloon-cath intact.
[2022-04-16 20:45] VITALS: BP 130/51; PULSE 74; TEMP 98.7
[2022-04-17 00:44] VITALS: BP 132/55; PULSE 90; TEMP 98.2
[2022-04-17 04:38] VITALS: BP 111/50; PULSE 76; TEMP 97.9
[2022-04-17 06:45] LABS: BASO # 0.1 K/mm3 (0.0-0.2); BASO % 0.7 % (0.0-2.0); EOS # 0.6 K/mm3 (0.0-0.7); EOS % 3.4 % (0.0-4.0); GRAN # 12.8 K/mm3 (1.4-6.5); GRAN % 77.8 % (42.2-75.2); HEMOGLOBIN 10.9 g/dl (12.5-16.0); LYMPH # 1.9 K/mm3 (1.2-3.4); LYMPH % 11.7 % (20.0-51.0); MEAN CELL VOLUME 92 fl (80.0-100.0); MEAN CORPUSCULAR HEMOGLOBIN 30 pg (27-31); MEAN CORPUSCULAR HGB CONC 33 g/dl (33.0-37.0); MEAN PLATELET VOLUME 12.4 fl (7.4-10.4); MONO # 0.9 K/mm3 (0.1-0.6); MONO % 5.4 % (1.7-9.3); PLATELET COUNT 191 K/mm3 (130-400); RED BLOOD COUNT 3.63 M/mm3 (4.10-5.30); REDCELL DISTRIBUTION WIDTH-CV 14.1 % (11.5-14.5)
--- NOTE | 2022-04-17 06:45 | NUR ---
Report received, assumed care for day shift.
[2022-04-17 07:00] LABS: HEMATOCRIT 33.4 % (37.0-47.0)
[2022-04-17 07:06] LABS: CALCIUM 7.9 mg/dL (8.4-10.2); CREATININE, serum 7.8 mg/dL (0.57-1.11); PHOSPHOROUS 4.2 mg/dL (2.3-4.7); POTASSIUM 4.5 mmol/L (3.5-4.5)
--- NOTE | 2022-04-17 08:00 | NUR ---
Assessment complete. A&Ox4. Denies pain/nausea/shortness of breath. VS remain stable. Noted to have bilat buttock ulcers-stage II to left buttock/stage III to right buttock. Plan of care discussed for this shift to include meds/dialysis/calling for questions/concerns. Verbalizes understanding. call light in reach. Will monitor.
[2022-04-17 08:04] VITALS: BP 134/55; PULSE 69; TEMP 97.9
--- NOTE | 2022-04-17 10:15 | NUR ---
Patient to dialysis via bed per rquest at this time.
[2022-04-17 12:20] VITALS: BP 126/53; PULSE 72; TEMP 97.9
--- NOTE | 2022-04-17 12:49 | NUR ---
Confirmed with [facility] that they are unable to accept this patient. Additional referrals sent to [facility], [facility] and [facility].
--- NOTE | 2022-04-17 14:10 | NUR ---
Back to room from dialysis.
[2022-04-17 15:41] VITALS: BP 131/36; PULSE 78; TEMP 98.2
--- NOTE | 2022-04-17 20:00 | NUR ---
Patient is resting in bed, alert and oriented x 4. VSS. Telemetry in place. Denies N/V. Assessment completed, meds provided. Dressing in bottom changed. No other needs at this time. Call light sujatha ennis.
[2022-04-17 20:28] VITALS: BP 137/52; PULSE 72; TEMP 98.1
[2022-04-18 00:16] VITALS: BP 133/45; PULSE 74; TEMP 98.3
[2022-04-18 04:47] VITALS: BP 134/56; PULSE 74; TEMP 98.1
--- NOTE | 2022-04-18 05:43 | NUR ---
Patient has had a calm night. VSS. Report will be given to day RN.
[2022-04-18 06:41] LABS: HEMOGLOBIN 10.8 g/dl (12.5-16.0); MEAN CELL VOLUME 92 fl (80.0-100.0); MEAN CORPUSCULAR HEMOGLOBIN 30 pg (27-31); MEAN CORPUSCULAR HGB CONC 33 g/dl (33.0-37.0); MEAN PLATELET VOLUME 12.4 fl (7.4-10.4); PLATELET COUNT 210 K/mm3 (130-400); RED BLOOD COUNT 3.56 M/mm3 (4.10-5.30)
[2022-04-18 06:44] LABS: HEMATOCRIT 32.8 % (37.0-47.0)
[2022-04-18 07:53] LABS: BAND 6 % (0-10); EOSINOPHIL 6 % (0-4); LYMPHOCYTE 20 % (20.0-51.0); NEUTROPHILS 62 % (42.0-75.2); PLATELET ESTIMATE NORMAL (NORMAL)
[2022-04-18 08:18] VITALS: BP 151/62; PULSE 76; TEMP 97.8
--- NOTE | 2022-04-18 08:20 | NUR ---
PT SITTING UP ON SIDE OF BED EATING BREAKFAST. PT STATES NO PAIN OR DISCOMFORT AT THIS TIME. "I FEEL PRETTY GOOD." PT STATES SHE IS NOT HAVING ANY N/V. PT STATES THAT SHE IS DOWN WITH HER BREAKFAST AND READY TO GET HER LEGS UP INTO THE BED. PT ATTEMPTED TO PUT LEGS INTO BED HERSELF BUT WAS UNABLE. ASSISTED PT TO MOVE LEGS INTO BED AND HELP GET BOOSTED UP AND REPOSITIONED COMFORTABLLY. PT STATES 'I JUST WANT TO WATCH TV." CALL LIGHT WAS PLACED IN REACH. NO OTHER NEEDS VOICED AT THIS TIME.
[2022-04-18 11:41] VITALS: BP 137/65; PULSE 77; TEMP 98.4
--- NOTE | 2022-04-18 12:44 | NUR ---
[facility] director notified me that the patient has been accepted to our inpatient rehab.
[2022-04-18] MEDS ORDERED: BACTRIM DS 8001 TAB PO (13:07)
--- NOTE | 2022-04-18 14:27 | NUR ---
CALLED REPORT TO SIDNEY ON [facility]. ALL QUESTIONS WERE ANSWERED.
[2022-04-18] MEDS ORDERED: LOTSPY TOP (14:30)
[2022-04-18] MEDS ORDERED: ROCEPHIN VIA1 G/VIAL IJ (14:31)
[2022-04-18] MEDS ORDERED: LEVEMIR100 U/ML SQ (14:31)
[2022-04-18] MEDS ORDERED: ROCEPHIN VIA1 G/VIAL INJ (14:32)
[2022-04-18] MEDS ORDERED: NOVOLOG SSI (14:32)
== END 2022-04-18 13:50 | DRG 853 ==
LOC: COL.ER 17:29 → MEDICAL 20:42 → ICU 04-12 21:54 → MEDICAL 04-14 20:35
PROVIDERS: Nurse Practitioner Family; Physician Assistant; Registered Nurse; Urology; ADMIT Internal Medicine Nephrology
PROC: 0T768DZ Dilation of Right Ureter with Intraluminal Device, Via Natural or Artificial Opening Endoscopic (ICD-10-PCS; principal; 2022-04-13 00:30)
PROC: BT1D1ZZ Fluoroscopy of Right Kidney, Ureter and Bladder using Low Osmolar Contrast (ICD-10-PCS; 2022-04-13 00:30)
PROC: 5A1D70Z Performance of Urinary Filtration, Intermittent, Less than 6 Hours Per Day (ICD-10-PCS; 2022-04-13 00:30)
DX: A41.59 Other Gram-negative sepsis (principal); R65.21 Severe sepsis with septic shock; N18.6 End stage renal disease; G93.41 Metabolic encephalopathy; J96.01 Acute respiratory failure with hypoxia; E87.1 Hypo-osmolality and hyponatremia; E87.2 Acidosis; N25.81 Secondary hyperparathyroidism of renal origin; C64.2 Malignant neoplasm of left kidney, except renal pelvis; Q60.0 Renal agenesis, unilateral; N13.6 Pyonephrosis; I50.30 Unspecified diastolic (congestive) heart failure; I13.2 Hypertensive heart and chronic kidney disease with heart failure and with stage 5 chronic kidney disease, or end stage renal disease; D63.1 Anemia in chronic kidney disease; L89.152 Pressure ulcer of sacral region, stage 2; E83.39 Other disorders of phosphorus metabolism; E87.5 Hyperkalemia; I48.0 Paroxysmal atrial fibrillation; E11.22 Type 2 diabetes mellitus with diabetic chronic kidney disease; K21.9 Gastro-esophageal reflux disease without esophagitis; I25.10 Atherosclerotic heart disease of native coronary artery without angina pectoris; E11.51 Type 2 diabetes mellitus with diabetic peripheral angiopathy without gangrene; E03.9 Hypothyroidism, unspecified; H40.9 Unspecified glaucoma; I27.20 Pulmonary hypertension, unspecified; E87.8 Other disorders of electrolyte and fluid balance, not elsewhere classified; E78.5 Hyperlipidemia, unspecified; E87.6 Hypokalemia; Z96.652 Presence of left artificial knee joint; Z20.822 Contact with and (suspected) exposure to COVID-19; Z79.01 Long term (current) use of anticoagulants; Z79.4 Long term (current) use of insulin; Z79.82 Long term (current) use of aspirin; Z99.2 Dependence on renal dialysis; Z88.0 Allergy status to penicillin; Z91.15 Patient's noncompliance with renal dialysis; Z86.73 Personal history of transient ischemic attack (TIA), and cerebral infarction without residual deficits; Z23 Encounter for immunization
CPT/HCPCS: OP; 99223; 99232-AI; 99233-AI; A4314; C1751; C1769; C2617; J0330; J0696; J1644; J1815; J2405; J2543; J2704; J3010; J3370; J7030; J7040; J7050; J7060; Q5105; Q9967

== ENCOUNTER 2022-04-18 13:51 | Inpatient (IN) | payer MEDICARE ==
[~2022-04-18] VITALS: Ht 160 cm; Wt 101.3 kg
[~2022-04-18 13:51] MED LIST changes: +BACTRIM DS 8001 TAB PO; +SENNA-LAX8.6 MG PO
--- NOTE | 2022-04-18 14:19 | NUR ---
Pt. to unit from Medical unit. She was escorted via wheelchair by OT. She is alert and oriented, pleasant. Denies pain or discomfort. Stg II ulcers x 2 noted to buttocks, has one Stg II ulcer closer to labia. Allevyn and Aquacell placed over ulcers for protection. Admission assessment and intake completed. Orientation provided to room/unit. Call light is within her reach
[2022-04-18] MEDS ORDERED: LOTSPY TOP (14:30)
[2022-04-18] MEDS ORDERED: ROCEPHIN VIA1 G/VIAL IJ (14:31)
[2022-04-18] MEDS ORDERED: LEVEMIR100 U/ML SQ (14:31)
[2022-04-18] MEDS ORDERED: NOVOLOG SSI (14:32)
[2022-04-18] MEDS ORDERED: ROCEPHIN VIA1 G/VIAL INJ (14:32)
[2022-04-18 14:46] VITALS: BP 137/60; PULSE 71; TEMP 97.6
--- NOTE | 2022-04-18 17:08 | NUR ---
Right IJ catheter in place. Order to remove received by [facility] RACHAEL Wood. This RN removes IJ catheter following proper cleansing and removal of sutures. Area dressed, Israel RN to hold pressure for 10 minutes. Patient laying supine in bed during removal. Post removal instructions given.
--- NOTE | 2022-04-18 17:39 | NUR ---
Right IJ central line removed by Nsg. gambling floor supervisor at approx 1708. Pressure held to IJ site x 10 minutes. Gauze and transparent dressing applied. No noted bleeding at this time. Pt. denies pain or discomfort. Call light is within her reach. Telemetry removed as directed by Dr. Mendoza
[2022-04-18 17:48] VITALS: BP 160/62; PULSE 71; TEMP 97.6
[2022-04-18 18:05] VITALS: BP 167/66
--- NOTE | 2022-04-18 19:11 | NUR ---
RECEIVED CHANGE OF SHIFT REPORT FROM DAY SHIFT RN.
[2022-04-19 06:06] VITALS: BP 113/50; PULSE 68; TEMP 97.8
--- NOTE | 2022-04-19 06:39 | NUR ---
OBSERVED PATIENT WORE SCD FOR PART OF NIGHT, WANTED "A BREAK FROM THEM" AND HAD SCD TAKEN OFF.
--- NOTE | 2022-04-19 07:00 | NUR ---
CHANGE OF SHIFT REPORT GIVEN TO DAY SHIFT RNCARLEEN.
--- NOTE | 2022-04-19 08:00 | NUR ---
Patient sitting up in bed eating dinner. A&Ox3. VSS. Reports pain in fistula site. Independent with feeds. Air mattress on bed. Call light within reach. Bed alarm on
[2022-04-19 09:07] LABS: ALBUMIN 2.1 gm/dL (3.4-4.8); CALCIUM 8.3 mg/dL (8.4-10.2); CREATININE, serum 6.44 mg/dL (0.57-1.11); PHOSPHOROUS 3.8 mg/dL (2.3-4.7); POTASSIUM 4.1 mmol/L (3.5-4.5)
[2022-04-19 17:15] VITALS: BP 129/50; PULSE 73; TEMP 97.9
--- NOTE | 2022-04-19 17:21 | NUR ---
Patient sitting up in the recliner, A&Ox3. VSS. Denies pain, reports discomfort in buttucks from pressure of sitting. Independent with feeds. Call light within reach
--- NOTE | 2022-04-19 19:00 | NUR ---
RECEIVED CHANGE OF SHIFT REPORT FROM DAY SHIFT RN. PATIENT UP IN CHAIR DURING REPORT. NO NEEDS OR CONCERNS REPORTED.
--- NOTE | 2022-04-19 20:19 | NUR ---
CHANGE ALLEVYN DRSGS TO UPPER INNER RIGHT THIGH NEXT TO R LABIA AND TO SHARITA BUTTOCKS WITH SMALL AQ CELL SILVER PIECE PLACED TO SMALL OVAL SHALLOW WOUND TO LEFT BUTTOCK & BARRIER CREAM TO SHARITA EXCORIATED INNER BUTTOCK AREAS PRIOR TO SACRAL/COCCYX ALLEVYN DRSG TO COVER AREA
[2022-04-20 05:31] VITALS: BP 129/44; PULSE 79; TEMP 97.9
[2022-04-20 07:07] LABS: CALCIUM 8.2 mg/dL (8.4-10.2); CREATININE, serum 5.39 mg/dL (0.57-1.11); PHOSPHOROUS 3.7 mg/dL (2.3-4.7); POTASSIUM 4.2 mmol/L (3.5-4.5)
--- NOTE | 2022-04-20 07:11 | NUR ---
CHANGE OF SHIFT REPORT GIVEN TO DAY SHIFT MARITA CANO.
--- NOTE | 2022-04-20 09:29 | NUR ---
PT WORKING WITH PHYSICAL THERAPY, ASSISTED WITH REPLACING DRESSINGS TO X3 PRESSURE SORES AFTER SHOWERING. SHIFT ASSESSMENT COMPLETED. MORNING MEDICATIONS GIVEN. PT STATES SHE IS EXHAUSTED AFTER WORKING WITH PHYSICAL THERAPY. PT NOTIFIES THIS RN THAT IT WAS NICE TO SHOWER BECAUSE SHE HAS NOT HAD HOT WATER AT HER HOME SINCE DUE TO A MECHANICAL ISSUE AND COSTS ASSOCIATED WITH FIXING IT, WILL PASS ALONG TO PROVIDER. DENIES ANY NEEDS AT THIS TIME. WILL CONTINUE TO MONITOR.
--- NOTE | 2022-04-20 16:12 | NUR ---
[employer] met with patient to discuss discharge planning. Patient lives in [place] with her daughter, Griselda (ph#[phone]) [address] Dr. Palafox for primary care. Patient obtains medications at [facility] and has a walker, wheelchair, and shower bench at home. Patient states she is normally independent with ADLS but needs help occasionally. Patient has DPOA-HC in EMR which designates her daughter and granddaughter Sylwia. SW inquired about patient's hot water at home as she reported to the RN that they don't have hot water at home. Patient states that their hot water heater is broken and it's too expensive to fix. SW contacted patient's daughter, Griselda to follow up. Griselda advised she is hopeful to get patient home as soon as possible as this is her mother's wish. Griselda advised she is in the process of getting a ramp put in. SANG asked about the water heater and Griselda was unsure why patient would even be discussing this. Griselda advised she has been in contact with a motel manager and plans to touch base with them on Saturday.
[2022-04-21 05:52] VITALS: BP 130/53; PULSE 64; TEMP 98.1
--- NOTE | 2022-04-21 07:08 | NUR ---
Pt. awake and resting in bed. HOB elevated approx 30 degrees. She denies pain or discomfort. Denies further needs. Call light is within her reach
[2022-04-21 08:12] LABS: ALBUMIN 2.2 gm/dL (3.4-4.8); CALCIUM 8.8 mg/dL (8.4-10.2); CREATININE, serum 4.48 mg/dL (0.57-1.11); PHOSPHOROUS 3.4 mg/dL (2.3-4.7); POTASSIUM 4.1 mmol/L (3.5-4.5)
--- NOTE | 2022-04-21 09:09 | NUR ---
Pt. ambulating on stairs with PT in PT gym. Pt's right leg started to give out and she was lowered to a sitting position on the stairs by PT. Pt. denies pain or discomfort. No apparent s/sx of injury. Pt. assisted up to standing position and ambulated w/out pain or difficulty to wheelchair. Will continue to monitor
--- NOTE | 2022-04-21 11:18 | NUR ---
Pt sitting up in recliner chair. She has completed OT and PT for the day. She denies pain or discomfort. Denies further needs at this time. Call light is within her reach
--- NOTE | 2022-04-21 17:00 | NUR ---
Daughter Griselda called to speak with the charge nurse about complaints from the patient in room 336. Regarding the patients statement about not having hot water at home. The patients daughter was upset that OT brought it up with the patient and the daughter stopped in to visit her mother and the patient was crying and upset. This nurse spoke with the daughter Griselda over the phone and with the patient, nurse Israel RN present. Daughter is aware that this nurse has spoken with the patient.
[2022-04-21 18:22] VITALS: BP 139/51; PULSE 71; TEMP 98.5
--- NOTE | 2022-04-21 18:24 | NUR ---
Pt sitting up in recliner, reading a book. She reports a burning sensation in her mouth x 4-5 days. She reports mentioning this sensation to JOSÉ LUIS Samayoa, who did a "thorough assessment". Pt. is concerned about thrush. No white coating noted to tongue, side of mouth, roof of mouth. No ulcers/open areas noted to palate or tongue. Pt. given warm water to rinse her mouth with and given supplies to brush her teeth. Pt. reports this helped but that her food tastes "spicy". Will continue to monitor. Pt. denies further needs at this time. Call light is within her reach
--- NOTE | 2022-04-22 04:48 | NUR ---
Pt has been pleasant this shift and has had an uneventful evening. Assessment and medication administered without difficulty. Pt has no complaints of pain. All other needs met at this time. Call light within reach.
[2022-04-22 06:13] VITALS: BP 112/43; PULSE 61; TEMP 98.2
--- NOTE | 2022-04-22 07:09 | NUR ---
Shift report received from shift leader RN. Pt. sitting up in recliner. Denies pain or discomfort. Denies further needs at this time. Call light is within her reach
[2022-04-22 07:30] LABS: ALBUMIN 2.2 gm/dL (3.4-4.8); CALCIUM 9.1 mg/dL (8.4-10.2); CREATININE, serum 5.78 mg/dL (0.57-1.11); POTASSIUM 4.6 mmol/L (3.5-4.5)
[2022-04-22 07:46] LABS: PHOSPHOROUS 3.5 mg/dL (2.3-4.7)
--- NOTE | 2022-04-22 10:06 | NUR ---
Pt resting in recliner. She reports having some knee pain. PRN pain medication offered and declined by pt. Pt. denies further needs at this time. Call light is within her reach
--- NOTE | 2022-04-22 16:49 | NUR ---
Pt repositioned from bed to recliner for dinner. Pt also requesting to sit up. She denies pain or discomfort at this time. Pt feels that her mouth doesn't have the same burning sensation as it did yesterday - she reports that it is getting better. Pt. denies further needs at this time. Call light is within her reach
[2022-04-22 18:27] VITALS: BP 129/37; PULSE 60; TEMP 98.2
--- NOTE | 2022-04-23 01:52 | NUR ---
PT SLEEPING. NO DISTRESS.
[2022-04-23 05:45] VITALS: BP 139/50; PULSE 62; TEMP 97.9
--- NOTE | 2022-04-23 06:21 | NUR ---
PT SITTING UP IN CHAIR READING BOOK. NO NEEDS THIS AM.
--- NOTE | 2022-04-23 06:59 | NUR ---
Shift report received from rn shift mgr RN. Pt. awake and sitting in recliner. She denies pain or discomfort. Denies further needs. Call light is within her reach
[2022-04-23 07:45] LABS: ALBUMIN 2.3 gm/dL (3.4-4.8); CALCIUM 8.6 mg/dL (8.4-10.2); CREATININE, serum 6.99 mg/dL (0.57-1.11); PHOSPHOROUS 4.1 mg/dL (2.3-4.7); POTASSIUM 4.8 mmol/L (3.5-4.5)
--- NOTE | 2022-04-23 09:43 | NUR ---
Pt. up ambulating with walker in hallway with PT. Mepilex dressings replaced to Stg II ulcers on inner buttocks. No bleeding noted from buttock ulcers. Pt. denies pain or discomfort. Denies further needs
[2022-04-23 13:03] LABS: BASO # 0.1 K/mm3 (0.0-0.2); BASO % 0.6 % (0.0-2.0); EOS # 0.4 K/mm3 (0.0-0.7); EOS % 3.3 % (0.0-4.0); GRAN # 8.2 K/mm3 (1.4-6.5); GRAN % 68.8 % (42.2-75.2); HEMOGLOBIN 10.7 g/dl (12.5-16.0); LYMPH # 2.1 K/mm3 (1.2-3.4); LYMPH % 17.9 % (20.0-51.0); MEAN CELL VOLUME 96 fl (80.0-100.0); MEAN CORPUSCULAR HEMOGLOBIN 30 pg (27-31); MEAN CORPUSCULAR HGB CONC 31 g/dl (33.0-37.0); MEAN PLATELET VOLUME 12.7 fl (7.4-10.4); MONO # 1.1 K/mm3 (0.1-0.6); MONO % 8.9 % (1.7-9.3); PLATELET COUNT 303 K/mm3 (130-400); RED BLOOD COUNT 3.59 M/mm3 (4.10-5.30); REDCELL DISTRIBUTION WIDTH-CV 13.9 % (11.5-14.5)
[2022-04-23 13:07] LABS: HEMATOCRIT 34.4 % (37.0-47.0)
--- NOTE | 2022-04-23 17:05 | NUR ---
Pt. back in room after dialysis. Assisted to the toilet then to recliner. She denies pain or discomfort. Denies further needs at this time. Call light is within her reach
[2022-04-23 18:09] VITALS: BP 139/50; PULSE 62; TEMP 97.9
--- NOTE | 2022-04-23 19:15 | NUR ---
RECEIVED CHANGE OF SHIFT FROM DAY SHIFT RN.
--- NOTE | 2022-04-24 04:39 | NUR ---
PATIENT REMOVED DRSG FROM AV FISTULA SITE TO LUE PER SELF, OBSERVED NO DRAINAGE/BLEEDING TO FISTULA SITE.
[2022-04-24 06:11] VITALS: BP 137/50; PULSE 62; TEMP 98.1
--- NOTE | 2022-04-24 07:05 | NUR ---
CHANGE OF SHIFT REPORT GIVEN TO DAY SHIFT RNKEO.
--- NOTE | 2022-04-24 14:44 | NUR ---
Web Marketing Specialist met with patient to follow up from the weekend. Patient states she had a mostly boring weekend and inquired about a family meeting. SANG advised she was going to contact Griselda to get it scheduled. SANG contacted Griselda and scheduled meeting for at 0930. Griselda plans to participate by phone.
--- NOTE | 2022-04-24 16:05 | NUR ---
Admission QIM scores were reviewed by the team. Code of 5 chosen for eating was determined by team discussion to be the most usual performance for this patient during the assessment period. Code of 2 chosen for toilet hygiene was determined by team discussion to be the most usual performance for this patient during the assessment period. Code of 3 chosen for toilet transfers was determined by team discussion to be the most usual performance for this patient during the assessment period. Code of 2 chosen for shower/bathe self was determined by team discussion to be the most usual performance before interventions for this patient during the assessment period. Code of 3 chosen for lower body dressing was determined by team discussion to be the most usual performance for this patient during the assessment period. Code of 2 chosen for sit to lying was determined by team discussion to be the most usual performance before interventions for this patient during the assessment period. Code of 2 chosen for lying to sitting on side of bed was determined by team discussion to be the most usual performance for this patient during the assessment period. Code of 3 for chair/bed to chair transfers was determined by team discussion to be the most usual performance for this patient during the assessment period. Code of 4 chosen for walk 10 feet was determined by team discussion to be the most usual performance for this patient during the assessment period.--PD Boaz
[2022-04-24 18:00] VITALS: BP 142/51; PULSE 61; TEMP 97.8
--- NOTE | 2022-04-24 19:08 | NUR ---
RECEIVED CHANGE OF SHIFT REPORT FROM DAY SHIFT RN.
[2022-04-24] MEDS ORDERED: ATARAX50 MG PO (21:04)
--- NOTE | 2022-04-24 23:26 | NUR ---
REQUESTED/GIVEN TYLENOL FOR GENERALIZED DISCOMFORT WHILE LAYING IN BED.
[2022-04-25 05:43] VITALS: BP 124/40; PULSE 55; TEMP 98.3
--- NOTE | 2022-04-25 07:01 | NUR ---
Shift report received from manager night RN. Pt. awake and in recliner. BS was 75 this morning - is eating a snack. She denies pain or discomfort. Call light is within her reach
--- NOTE | 2022-04-25 07:14 | NUR ---
CHANGE OF SHIFT REPORT GIVEN TO DAY SHIFT RNKALI.
--- NOTE | 2022-04-25 07:53 | NUR ---
Blood sugar recheck 124. Pt. has completed breakfast. Pt. assisted to wheelchair to toilet and to get dressed for ST this morning
--- NOTE | 2022-04-25 10:39 | NUR ---
Mepilex to coccyx reapplied. Scabs noted to Stg II ulcers on inner buttocks
--- NOTE | 2022-04-25 10:48 | NUR ---
Dialysis has been rescheduled for 04/26/22. Lab wanting clarification on daily CBC order - should they draw today or wait until tomorrow. Called JOSÉ LUIS Samayoa and left a voice mail for her to return my call
--- NOTE | 2022-04-25 15:19 | NUR ---
Corn Popper met with patient to provide copy of team conference notes. SW advised patient that family conference will take place tomorrow at 0930 and that discharge date has been set for a week from today, 05/02/22. SW contacted patient's daughter, Griselda to provide updates. SW notified Griselda of discharge date and she is agreeable to this. SANG also advised that the team is recommending Home Health and Griselda asked what for. SANG advised for PT and OT and Griselda responded with "we'll see". Griselda expressed that patient had home health before the pandemic, but that between reducing possible exposure to covid and their dog who is a rescue, having someone in the home is not ideal. Griselda stated that covid could "kill her mother". SW also addressed patient's sleeping arrangements and advised that the team recommended sleeping in a bed if able as opposed to patient sleeping in a recliner. Griselda quickly responded by stating patient has a whole bedroom set including a bed, however is stubborn and prefers to sleep in her recliner. Griselda advised that patient has had those wounds for years, before she moved in with Griselda and at one point they had healed almost entirely, but got worse again when she got sick. SW reminded Griselda of family meeting tomorrow and Griselda confirmed she will be available by phone. SANG followed up with Griselda about the hot water concern and asked if she was in contact with a industrial production manager. At this point, Griselda raised her voice and asked why everyone was so fixated on the hot water issue. Griselda stated she is not neglecting her mom and is tired of being asked about the hot water. SANG attempted to explain to Griselda that the reason she is following up on the hot water is in relation to patient's wounds and having the ability to get completely clean if there is no hot water. Griselda spoke over SW and shouted that hot water had nothing to do with getting clean and they only way hot water can get you clean is if it's boiling, which is obviously not safe. Griselda again stated that she is not neglecting her mom and that staff here are upsetting her mother and making her cry by constantly questioning her about it. Towards the end of dicussion about hot water, Griselda makes the comment about patient not keeping her flapping mouth shut. SANG ended discussion about hot water and advised she would call Griselda for family meeting. SANG updated RN and Hetal, [facility] Director.
[2022-04-25 17:02] VITALS: BP 128/50; PULSE 57; TEMP 98.1
--- NOTE | 2022-04-25 21:42 | NUR ---
PT SITTING UP IN RECLINER WATCHING TV. SEE MAR FOR HYDROXYZINE GIVEN FRO ITCHING. NO OBVIOUS RASH NOTED. TELETYPE ADJUSTER APPLIED LOTION TO BODY. CALL LIGHT IN REACH. BED ALARM SET.
[2022-04-26 06:19] VITALS: BP 128/39; PULSE 58; TEMP 98.6
--- NOTE | 2022-04-26 07:42 | NUR ---
PATIENT ALERT AND ORIENTED X3. SITTING UP IN CHAIR. TOOK MORNING MEDICATIONS WELL. PATIENT ON ACHS BLOOD SUGARS. NO NEW CONCERNS.
--- NOTE | 2022-04-26 10:52 | NUR ---
Vocal Music Teacher participated in family conference which included patient's daughter, Griselda by phone. Hetal IPR Director opened the meeting and then PT/OT/ST provided updates on patient's progress. Airport Driver provided a clinical update then SW reviewed discharge date, 05/02/22, and recommendation for home health. Griselda had reservations about HH during phone converstaion with SW yesterday, however Griselda is open to having HH services, she just remarked that they do not want to have frequent visits as patient's dialysis schedule is the priority. Griselda will look in patient's records to find out what HH agency they used in the past as they were very pleased with them when they used them a couple years ago. Griselda also advised they have installed a ramp in the garage so that patient does not have to use steps to get into the home. SANG will follow up with HH referral once Griselda provides the agency.
--- NOTE | 2022-04-26 13:35 | NUR ---
Compliance Coordinator spoke with patient's daughter, Griselda on the phone about concerns for day of discharge and dialysis schedule. SW confirmed with MIRANDA Samayoa that patient's normal dialysis schedule is MWF. SANG advised Griselda that patient will have dialysis prior to discharge on Saturday.
[2022-04-26 15:38] LABS: BASO # 0.1 K/mm3 (0.0-0.2); BASO % 0.9 % (0.0-2.0); EOS # 0.4 K/mm3 (0.0-0.7); GRAN # 6.9 K/mm3 (1.4-6.5); GRAN % 64.5 % (42.2-75.2); HEMATOCRIT 32.2 % (37.0-47.0); HEMOGLOBIN 10.3 g/dl (12.5-16.0); LYMPH # 2.1 K/mm3 (1.2-3.4); MEAN CELL VOLUME 94 fl (80.0-100.0); MEAN CORPUSCULAR HEMOGLOBIN 30 pg (27-31); MEAN CORPUSCULAR HGB CONC 32 g/dl (33.0-37.0); MONO # 1.1 K/mm3 (0.1-0.6); MONO % 10.2 % (1.7-9.3); PLATELET COUNT 427 K/mm3 (130-400); RED BLOOD COUNT 3.44 M/mm3 (4.10-5.30)
[2022-04-26 15:43] LABS: ALBUMIN 2.3 gm/dL (3.4-4.8); CALCIUM 8.1 mg/dL (8.4-10.2); PHOSPHOROUS 4.9 mg/dL (2.3-4.7); POTASSIUM 4.9 mmol/L (3.5-4.5)
[2022-04-26 18:00] VITALS: BP 124/45; PULSE 57; TEMP 98.3
--- NOTE | 2022-04-26 20:54 | NUR ---
PT SITTING IN RECLINER. ASSISTED TO BR WITH WALKER. SL UNSTAEDY SLOW. KNEES WEAK HAD TO STOP AND SIT DOWN IN WHEELCHAIR BEFORE GOING TO BED. PT C/O GENERALIZED ITCHING. HAD HYDROXYZINE AT 1825. TOO SOON. APPLIED LOTION TO SKIN. CHANGED COCCYX DRSG. STAGE 2 APPROX 4CM WOUND NOTED. ENC PT TO SHIFT WEIGHT OFF HIPS. HAS AIR MATTRESS ON BED. AND EXTRA CUSHION IN CHAIR. TO BED. CALL LIGHT IN REACH. BED ALARM SET.
--- NOTE | 2022-04-27 00:45 | NUR ---
ASSISTED PT TO BR WITH WALKER BY SEO TEAM LEAD. VOIDED. NOTED SMALL AMOUNT OF BLOOD IN TOILET. PT RELATES SHE HAS POSSIBLE HEMORRHOIDS. WILL CONTINUE TO MONITOR.
[2022-04-27 05:26] VITALS: BP 126/35; BP 144/43; PULSE 59; TEMP 98
--- NOTE | 2022-04-27 06:01 | NUR ---
ASSISTED TO BR BY NAIMA. NOTED SMALL AMOUNT OF BLOOD ON CHUX. WITH ASSESSMENT PT WAS FOUND TO HAVE EXTERNAL HEMORRHOID WITH SMALL AMT OF BLOOD. WILL CONTINUE TO MONITOR.
--- NOTE | 2022-04-27 08:07 | NUR ---
PATIENT ALERT AND ORIENTED X3. NO NEW CONCERNS. PATIENT SITTING UP IN CHAIR EATING BREAKFAST.
[2022-04-27 15:18] LABS: BASO # 0.1 K/mm3 (0.0-0.2); BASO % 1.2 % (0.0-2.0); EOS # 0.4 K/mm3 (0.0-0.7); EOS % 3.9 % (0.0-4.0); GRAN # 5.8 K/mm3 (1.4-6.5); GRAN % 59.9 % (42.2-75.2); HEMOGLOBIN 10.2 g/dl (12.5-16.0); LYMPH # 2.2 K/mm3 (1.2-3.4); LYMPH % 22.5 % (20.0-51.0); MEAN CELL VOLUME 96 fl (80.0-100.0); MEAN CORPUSCULAR HEMOGLOBIN 30 pg (27-31); MEAN CORPUSCULAR HGB CONC 31 g/dl (33.0-37.0); MEAN PLATELET VOLUME 11.8 fl (7.4-10.4); MONO # 1.2 K/mm3 (0.1-0.6); MONO % 12.1 % (1.7-9.3); PLATELET COUNT 419 K/mm3 (130-400); RED BLOOD COUNT 3.45 M/mm3 (4.10-5.30); REDCELL DISTRIBUTION WIDTH-CV 14.2 % (11.5-14.5)
[2022-04-27 15:25] LABS: HEMATOCRIT 33.1 % (37.0-47.0)
[2022-04-27 15:35] LABS: ALBUMIN 2.4 gm/dL (3.4-4.8); CALCIUM 8.3 mg/dL (8.4-10.2); CREATININE, serum 5.89 mg/dL (0.57-1.11); POTASSIUM 4.6 mmol/L (3.5-4.5)
[2022-04-27 18:00] VITALS: BP 138/48; PULSE 60; TEMP 97.7
--- NOTE | 2022-04-27 21:33 | NUR ---
ASSESSMENT COMPLETE. PT SITTING IN CHAIR DOSING. A&O. PT. WAS HELPED TO THE BATHROOM AND THEN INTO BED. STEADY GAIT WITH WALKER. MEDICATIONS AND INSULIN WAS GIVEN (SEE EMAR)/. FISTULA TO LEFT UPPER ARM. MIRAPLEX DRESSING TO COCCYX. COMPLAINING OF BEING SORE FROM PT/OT. NO OTHER COMPLAINTS. CALL LIGHT IN REACH.
--- NOTE | 2022-04-28 01:01 | NUR ---
THE AID ASSISTED THE PT. TO BATHROOM WITH WALKER WHERE SHE HAD A BOWEL MOVMENT. MIRAPLEX DRESSING TO COCCYX CHANGED BY THIS NURSE. PT. WAS THEN SETTLED INTO CHAIR. NO FURHTHER NEEDS AT THIS TIME.
[2022-04-28 05:45] VITALS: BP 129/36; PULSE 65; TEMP 98.9
--- NOTE | 2022-04-28 08:00 | NUR ---
Patient sitting up in the recliner, A&Ox4. VSS. Fistula CDI. Denies pain and discomfort. Independent with repositioning in the chair and feeds. Call light within reach
[2022-04-28 17:18] VITALS: BP 132/43; PULSE 61; TEMP 98.6
--- NOTE | 2022-04-28 17:48 | NUR ---
Patient sitting up in the recliner eating dinner and doing crossword puzzles. A&Ox4. VSS. Fistula CDI. Denies pain and discomfort. Patient independent with feeds and repositioning in the recliner. Call light within reach
--- NOTE | 2022-04-28 19:45 | NUR ---
ASSESSMENT COMPLETE. PT. SITTING IN CHAIR SLEEPING. A&O. NO COMPLAINTS OF PAIN OR NAUSEA. PT. WAS WALKED TO THE BATHROOM USING A WALKER AND THEN SETTLED BACK INTO CHAIR. PT. HAS A HEALING STAGE II PRESSURE ULCER TO COCCYX. ASSESSED A THRILL AND BRUIT TO LEFT UPPPER ARM FISTULA. NO OTHER NEEDS AT THIS TIME. CALL LIGHT IN REACH.
--- NOTE | 2022-04-29 05:58 | NUR ---
PT. WOKE IN DISTRESS AROUND 0300 SAYING SHE FELT "SOMEONE IS PUSHING ME DOWN." PT. WAS ASSISTED TO THE BATHROOM AND THEN TO THE CHAIR WHERE SHE EXPRESSED THE DESIRE TO READ UNTIL THE FEELING PAST. NO OTHER NEEDS.
[2022-04-29 06:00] VITALS: BP 133/48; PULSE 66; TEMP 98.7
--- NOTE | 2022-04-29 06:47 | NUR ---
PT. BS WAS FOUND TO BE 63. PT WAS GIVEN ORAL GLUCOSE GEL 15GM TO EAT BUT THE PT REFUSED TO TAKE IT STATING "IT'S TOO DAMN SWEET." TWO GRAHM CRACKERS WERE GIVEN INSTEAD. DR. RAMIRO FUNES. WILL CONTINUE TO MONITOR BS CLOSELY.
--- NOTE | 2022-04-29 07:12 | NUR ---
Shift report received from correctional lieutenant RN. Pt. sitting up in recliner. BS 100 mg/dL. Breakfast currently being delivered on unit. Pt. asymptomatic of hypoglycemia. Call light is within her reach
--- NOTE | 2022-04-29 11:19 | NUR ---
Pt sitting up in recliner. Call received from Dr. Lees this morning stating that pt will have dialysis today, not tomorrow. Pt. has not yet gone to dialysis. She denies pain or discomfort. Denies further needs. Call light is within her reach
--- NOTE | 2022-04-29 12:11 | NUR ---
PT. is at dialysis
[2022-04-29 12:32] LABS: HEMOGLOBIN 10.5 g/dl (12.5-16.0); MEAN CELL VOLUME 94 fl (80.0-100.0); MEAN CORPUSCULAR HEMOGLOBIN 30 pg (27-31); MEAN CORPUSCULAR HGB CONC 32 g/dl (33.0-37.0); MEAN PLATELET VOLUME 11.3 fl (7.4-10.4); PLATELET COUNT 448 K/mm3 (130-400); RED BLOOD COUNT 3.54 M/mm3 (4.10-5.30); REDCELL DISTRIBUTION WIDTH-CV 14.4 % (11.5-14.5)
[2022-04-29 12:34] LABS: HEMATOCRIT 33.2 % (37.0-47.0)
[2022-04-29 12:47] LABS: CALCIUM 8.8 mg/dL (8.4-10.2); CREATININE, serum 5.92 mg/dL (0.57-1.11); POTASSIUM 5.1 mmol/L (3.5-4.5)
[2022-04-29 12:55] LABS: BAND 1 % (0-10); BASOPHIL 1 % (0-2); EOSINOPHIL 2 % (0-4); HYPOCHROMIA 2+; LYMPHOCYTE 38 % (20.0-51.0); NEUTROPHILS 48 % (42.0-75.2); NUCLEATED RED BLOOD CELL 1 (0-6); PLATELET ESTIMATE INCREASED (NORMAL)
[2022-04-29 12:56] LABS: HOWELL-JOLLY BODIES 1+; TARGET CELLS 1+
[2022-04-29 12:57] LABS: BURR CELLS 1+; OVALOCYTES 1+
[2022-04-29 17:25] VITALS: BP 146/36; PULSE 64; TEMP 97.9
--- NOTE | 2022-04-29 17:50 | NUR ---
Pt. sitting in recliner working on crossword puzzles. She denies pain or discomfort. She reports feeling tired after dialysis earlier this afternoon. She denies further needs at this time. Call light is within her reach
--- NOTE | 2022-04-29 19:15 | NUR ---
RECEIVED CHANGE OF SHIFT REPORT FROM DAY SHIFT RN.
[2022-04-30 05:42] VITALS: BP 117/41; PULSE 56; TEMP 97.9
--- NOTE | 2022-04-30 07:20 | NUR ---
Shift report received from retail shift supervisor RN. A.M blood sugar was 69, 90 at recheck. Pt. up in her recliner waiting for breakfast. She denies further needs at this time. Call light is within her reach
--- NOTE | 2022-04-30 07:25 | NUR ---
CHANGE OF SHIFT REPORT GIVEN TO DAY SHIFT RNKALI.
--- NOTE | 2022-04-30 12:09 | NUR ---
Pt sitting in recliner reading a book. Dialysis was moved tomorrow since she had dialysis yesterday. She looking forward to being discharged in a few days. She denies pain or discomfort. Denies further needs. Call light is within her reach
--- NOTE | 2022-04-30 14:00 | NUR ---
SANG met with the patient to introduce oneself and to follow up after the weekend. The patient states that she is doing well. She states that she had a great day and is excited to and ready to get back home on Saturday. She states that her daughter has not informed her anymore about preference on home health agency. SANG presented and read the IM form outloud to the patient. The patient verbalized understanding and signed the form. SANG provided her with a copy. SANG attempted to contact the patient's Griselda to follow up on home health and preference for agency. SANG left her a voicemail.
--- NOTE | 2022-04-30 14:43 | NUR ---
The patient's daughter, Griselda, returned SANG's phone call. Griselda states that she has been busy and has not had a chance to check which home health agency the patient had in the past. Per EMR and social work's notes, the patient had [facility] HH in the past. SANG informed Griselda of this. Griselda states that the patient was at [facility] for rehab and they were great. She would like to go ahead and use [facility]. SANG contacted and faxed a referral to Darrin at [facility]. Awaiting screen.
[2022-04-30 17:13] VITALS: BP 149/37; PULSE 57; TEMP 98.3
--- NOTE | 2022-04-30 17:54 | NUR ---
Pt. sitting recliner. She has completed dinner. She reports some itching to her abd. No skin rash or redness present. PRN Atarax was given at her request. She denies pain or discomfort. Denies further needs at this time. Call light is within her reach
--- NOTE | 2022-04-30 19:00 | NUR ---
RECEIVED CHANGE OF SHIFT REPORT FROM DAY SHIFT RN. PATIENT UP IN CHAIR DURING REPORT. DENIES ANY NEEDS AT TIME OF REPORT.
[2022-05-01 05:18] VITALS: BP 132/40; PULSE 62; TEMP 98.6
[2022-05-01 06:32] LABS: BASO # 0.1 K/mm3 (0.0-0.2); BASO % 1.4 % (0.0-2.0); EOS # 0.6 K/mm3 (0.0-0.7); EOS % 7.5 % (0.0-4.0); GRAN # 3.5 K/mm3 (1.4-6.5); GRAN % 42.3 % (42.2-75.2); LYMPH % 36.6 % (20.0-51.0); MEAN CELL VOLUME 94 fl (80.0-100.0); MEAN CORPUSCULAR HGB CONC 31 g/dl (33.0-37.0); MEAN PLATELET VOLUME 11.4 fl (7.4-10.4); MONO % 11.7 % (1.7-9.3); PLATELET COUNT 432 K/mm3 (130-400); RED BLOOD COUNT 3.24 M/mm3 (4.10-5.30); REDCELL DISTRIBUTION WIDTH-CV 14.5 % (11.5-14.5)
[2022-05-01 06:38] LABS: HEMATOCRIT 30.5 % (37.0-47.0); HEMOGLOBIN 9.4 g/dl (12.5-16.0); MEAN CORPUSCULAR HEMOGLOBIN 29 pg (27-31)
[2022-05-01 06:46] LABS: ALBUMIN 2.3 gm/dL (3.4-4.8); CALCIUM 8.6 mg/dL (8.4-10.2); CREATININE, serum 6.3 mg/dL (0.57-1.11); PHOSPHOROUS 3.9 mg/dL (2.3-4.7); POTASSIUM 4.9 mmol/L (3.5-4.5)
--- NOTE | 2022-05-01 07:11 | NUR ---
CHANGE OF SHIFT REPORT GIVEN TO DAY SHIFT BILLY CANO.
--- NOTE | 2022-05-01 13:43 | NUR ---
Initial visit; Patient from [facility], has an accent and good stories of her childhood. Anodizer didn't have long with Jackelin until she had Physical Therapy. Anodizer will keep her in her prayers and follow up soon.
[2022-05-01 17:34] VITALS: BP 154/48; PULSE 62; TEMP 98.4
--- NOTE | 2022-05-01 18:50 | NUR ---
RECEIVED CHANGE OF SHIFT REPORT FROM DAY SHIFT RN.
--- NOTE | 2022-05-01 23:49 | NUR ---
PATIENT CALLED OUT WANTING TO HAVE HER BLOOD SUGAR CHECKED PER FINGER STICK, RESULTED IN 166. PATIENT DENIED ANY OTHER NEEDS OR CONCERNS.
--- NOTE | 2022-05-02 00:26 | NUR ---
REPORTS IS UNABLE TO SLEEP COMFORTABLY, UP IN CHAIR AFTER GOING TO BATHROOM. PATIENT STATING SHE WILL READ FOR A LITTLE WHILE.
--- NOTE | 2022-05-02 01:07 | NUR ---
PATIENT SLEEPING SITTING UP IN CHAIR, DID NOT WAKE WITH NURSING ENTERED ROOM ON ROUNDS.
[2022-05-02 05:35] VITALS: BP 119/37; PULSE 58; TEMP 98
[2022-05-02 06:43] LABS: BASO # 0.1 K/mm3 (0.0-0.2); BASO % 1.6 % (0.0-2.0); EOS # 0.6 K/mm3 (0.0-0.7); EOS % 8.4 % (0.0-4.0); GRAN # 2.8 K/mm3 (1.4-6.5); GRAN % 37.8 % (42.2-75.2); HEMOGLOBIN 10.1 g/dl (12.5-16.0); LYMPH # 2.8 K/mm3 (1.2-3.4); LYMPH % 38.5 % (20.0-51.0); MEAN CELL VOLUME 96 fl (80.0-100.0); MEAN CORPUSCULAR HEMOGLOBIN 30 pg (27-31); MEAN CORPUSCULAR HGB CONC 31 g/dl (33.0-37.0); MEAN PLATELET VOLUME 11.6 fl (7.4-10.4); MONO % 13.3 % (1.7-9.3); PLATELET COUNT 418 K/mm3 (130-400); RED BLOOD COUNT 3.38 M/mm3 (4.10-5.30); REDCELL DISTRIBUTION WIDTH-CV 14.6 % (11.5-14.5)
[2022-05-02 06:47] LABS: HEMATOCRIT 32.6 % (37.0-47.0)
[2022-05-02 06:57] LABS: ALBUMIN 2.3 gm/dL (3.4-4.8); CALCIUM 8.8 mg/dL (8.4-10.2); CREATININE, serum 4.43 mg/dL (0.57-1.11); POTASSIUM 4.3 mmol/L (3.5-4.5)
--- NOTE | 2022-05-02 07:07 | NUR ---
Shift report received from night time nanny RN. Pt. resting in bed. Call light is within her reach
--- NOTE | 2022-05-02 07:09 | NUR ---
Change of shift report given to day shift RNIsrael.
[2022-05-02] MEDS ORDERED: NOVOLOG FLEX100 U/ML SQ (09:19)
--- NOTE | 2022-05-02 11:53 | NUR ---
Pt. Health Summary, Discharge Summary, and Home Meds reviewed with pt and her 2 daughters. Belonging were gathered by pt, daughter, GERONTOLOGY AIDE. Pt. denied valuables. Discussed upcoming PCP f/u appt. Pt. escorted via wheelchair to vehicle and seatbelted for ride home
--- NOTE | 2022-05-02 13:00 | NUR ---
Darrin, at [facility], reports that they are able to accept the patient for services. The patient discharged back home with her daughter today, 05/02, with home health services for senior living/PT/OT/wound care from [facility]. SANG notified and faxed orders to Darrin at [facility]. No additional needs at this time.
--- NOTE | 2022-05-02 15:05 | NUR ---
Darrin, at [facility], contacted this SW. Darrin states that she contacted the patient's daughter, Griselda, to set up a time to visit the patient. She states that Griselda shot her down on setting up a visit. She states that Griselda stated that the patient just got home and to follow up again with them on Saturday. Darrin states that they will follow up on Saturday to find out if Griselda is open to them coming then. SANG made an APS report. IntakeID#[id number].
--- NOTE | 2022-05-03 13:25 | NUR ---
Discharge QIM scores were reviewed by the team. Code of 6 chosen for toilet hygiene was determined by team discussion to be the most usual performance for this patient during the assessment period. Code of 6 chosen for toilet transfers was determined by team discussion to be the most usual performance for this patient during the assessment period. Code of 6 chosen for sit to lying was determined by team discussion to be the most usual performance before interventions for this patient during the assessment period. Code of 6 chosen for lying to sitting on side of bed was determined by team discussion to be the most usual performance for this patient during the assessment period. Code of 6 for sit to stand was determined by team discussion to be the most usual performance for this patient during the assessment period. Code of 6 for chair/bed to chair transfers was determined by team discussion to be the most usual performance for this patient during the assessment period.--Hetal Broderick, PD
== END 2022-05-02 11:48 | disposition home health service (06) | DRG 947 ==
PROVIDERS: Internal Medicine Nephrology; Registered Nurse; ADMIT Physical Medicine & Rehabilitation Sports Medicine
PROC: 5A1D70Z Performance of Urinary Filtration, Intermittent, Less than 6 Hours Per Day (ICD-10-PCS; principal; 2022-04-19)
DX: R53.81 Other malaise (principal); A41.89 Other specified sepsis; G93.41 Metabolic encephalopathy; N18.6 End stage renal disease; J96.01 Acute respiratory failure with hypoxia; R65.21 Severe sepsis with septic shock; N13.2 Hydronephrosis with renal and ureteral calculous obstruction; I69.354 Hemiplegia and hemiparesis following cerebral infarction affecting left non-dominant side; N25.81 Secondary hyperparathyroidism of renal origin; I48.0 Paroxysmal atrial fibrillation; Z66 Do not resuscitate; Z99.2 Dependence on renal dialysis; R26.89 Other abnormalities of gait and mobility; E11.40 Type 2 diabetes mellitus with diabetic neuropathy, unspecified; L89.322 Pressure ulcer of left buttock, stage 2; L89.152 Pressure ulcer of sacral region, stage 2; L89.312 Pressure ulcer of right buttock, stage 2; R79.89 Other specified abnormal findings of blood chemistry; I25.10 Atherosclerotic heart disease of native coronary artery without angina pectoris; E11.22 Type 2 diabetes mellitus with diabetic chronic kidney disease; E83.39 Other disorders of phosphorus metabolism; E03.9 Hypothyroidism, unspecified; B96.4 Proteus (mirabilis) (morganii) as the cause of diseases classified elsewhere; D63.1 Anemia in chronic kidney disease; K21.9 Gastro-esophageal reflux disease without esophagitis; I65.23 Occlusion and stenosis of bilateral carotid arteries; I27.29 Other secondary pulmonary hypertension; E87.6 Hypokalemia; M19.90 Unspecified osteoarthritis, unspecified site; Z85.528 Personal history of other malignant neoplasm of kidney; Z90.5 Acquired absence of kidney; Z90.81 Acquired absence of spleen; Z79.899 Other long term (current) drug therapy; Z79.2 Long term (current) use of antibiotics; Z73.6 Limitation of activities due to disability; Z79.82 Long term (current) use of aspirin; Z79.4 Long term (current) use of insulin; Z96.652 Presence of left artificial knee joint; Z88.0 Allergy status to penicillin; Z88.8 Allergy status to other drugs, medicaments and biological substances; Z88.5 Allergy status to narcotic agent; Z91.041 Radiographic dye allergy status; Z96.0 Presence of urogenital implants; K59.00 Constipation, unspecified; Z87.19 Personal history of other diseases of the digestive system; K64.9 Unspecified hemorrhoids
CPT/HCPCS: J1644; J1815; Q5105

== ENCOUNTER 2022-06-27 20:00 | Emergency (ER) | payer MEDICARE ==
[~2022-06-27] VITALS: Ht 157.5 cm; Wt 77.3 kg
[~2022-06-27 20:00] MED LIST changes: +ATARAX50 MG PO; +LEVEMIR100 U/ML SQ; +LOTSPY TOP; +NOVOLOG FLEX100 U/ML SQ; +NOVOLOG SSI; +ROCEPHIN VIA1 G/VIAL IJ; +ROCEPHIN VIA1 G/VIAL INJ
[2022-06-27 20:24] LABS: BASO # 0.1 K/mm3 (0.0-0.2); BASO % 0.4 % (0.0-2.0); EOS # 0.8 K/mm3 (0.0-0.7); EOS % 5.4 % (0.0-4.0); GRAN # 9.3 K/mm3 (1.4-6.5); GRAN % 66.6 % (42.2-75.2); LYMPH # 2.7 K/mm3 (1.2-3.4); LYMPH % 19.4 % (20.0-51.0); MEAN CELL VOLUME 94 fl (80.0-100.0); MEAN CORPUSCULAR HGB CONC 30 g/dl (33.0-37.0); MEAN PLATELET VOLUME 11.2 fl (7.4-10.4); MONO # 1.1 K/mm3 (0.1-0.6); MONO % 7.6 % (1.7-9.3); PLATELET COUNT 422 K/mm3 (130-400); RED BLOOD COUNT 2.79 M/mm3 (4.10-5.30); REDCELL DISTRIBUTION WIDTH-CV 16.4 % (11.5-14.5)
[2022-06-27] MEDS ORDERED: CIPRO 500MG TA500 MG PO (20:33)
[2022-06-27 20:34] LABS: ALBUMIN 2.6 gm/dL (3.4-4.8); CREATININE, serum 2.75 mg/dL (0.57-1.11); MAGNESIUM 1.9 mg/dL (1.6-2.6); PHOSPHOROUS 1.6 mg/dL (2.3-4.7); POTASSIUM 3.5 mmol/L (3.5-4.5)
[2022-06-27 20:35] LABS: HEMATOCRIT 26.3 % (37.0-47.0); MEAN CORPUSCULAR HEMOGLOBIN 29 pg (27-31)
[2022-06-27 20:41] LABS: TROPONIN-I 0.025 ng/mL (0.00-0.033)
[2022-06-27 23:30] LABS: COLLECTION METHOD CATHETER
[2022-06-27 23:50] LABS: PH 7 (5-8); SQUAMOUS EPITHELIAL None Seen /hpf (0-10); URINE APPEARANCE Turbid (CLEAR/HAZY); URINE BACTERIA Rare /hpf (NONE SEEN); URINE BLOOD 3+ (NEGATIVE); URINE COLOR Red (YELLOW); URINE GLUCOSE 1+ (NEGATIVE); URINE KETONE Negative (NEGATIVE); URINE NITRATE Negative (NEGATIVE); URINE PROTEIN(semi-quant) 2+ (NEGATIVE); URINE RBC >50 /hpf (0-2); URINE UROBILINOGEN Negative (NEGATIVE)
[2022-06-28 00:57] VITALS: TEMP 98.4
[2022-06-28 01:46] VITALS: BP 146/51; PULSE 73
== END 2022-06-28 01:23 | disposition home or self-care (01) ==
LOC: COL.ER 20:00
PROVIDERS: Emergency Medicine; Emergency Medicine Emergency Medical Services
DX: R55 Syncope and collapse (principal); N39.0 Urinary tract infection, site not specified; N18.6 End stage renal disease; Z99.2 Dependence on renal dialysis; Z20.822 Contact with and (suspected) exposure to COVID-19; Z79.2 Long term (current) use of antibiotics
CPT/HCPCS: J0696

== ENCOUNTER 2022-12-26 15:44 | Inpatient (IN) | payer MEDICARE ==
[~2022-12-26] VITALS: Ht 157.5 cm; Wt 86.5 kg
[~2022-12-26 15:44] MED LIST changes: +CIPRO 500MG TA500 MG PO
[2022-12-26 16:02] LABS: COLLECTION METHOD IN
[2022-12-26 16:07] LABS: URINE APPEARANCE Cloudy (CLEAR/HAZY); URINE BLOOD 1+ (NEGATIVE); URINE COLOR Yellow (YELLOW); URINE GLUCOSE Negative (NEGATIVE); URINE KETONE 1+ (NEGATIVE); URINE NITRATE Negative (NEGATIVE); URINE PROTEIN(semi-quant) 2+ (NEGATIVE); URINE UROBILINOGEN 0.2 E.U/dL (0.2-1.0)
[2022-12-26 16:27] LABS: BUDDING YEAST Present (NOT PRESENT); MUCOUS Present (NOT PRESENT); URINE BACTERIA Many /hpf (NONE SEEN); URINE RBC 20-50 /hpf (0-2)
[2022-12-26 17:12] LABS: MEAN CELL VOLUME 83 fl (80.0-100.0); MEAN CORPUSCULAR HGB CONC 29 g/dl (33.0-37.0); MEAN PLATELET VOLUME 10.6 fl (7.4-10.4); PLATELET COUNT 506 K/mm3 (130-400); RED BLOOD COUNT 3.23 M/mm3 (4.10-5.30); REDCELL DISTRIBUTION WIDTH-CV 18.5 % (11.5-14.5)
[2022-12-26 17:17] LABS: HEMATOCRIT 26.8 % (37.0-47.0); HEMOGLOBIN 7.8 g/dl (12.5-16.0); MEAN CORPUSCULAR HEMOGLOBIN 24 pg (27-31)
[2022-12-26 17:35] LABS: INR 1.1 (0.8-3.0); PROTHROMBIN TIME 12.7 SECONDS (9.7-12.8)
[2022-12-26 17:36] LABS: ALBUMIN 2.5 gm/dL (3.4-4.8); BILIRUBIN,TOTAL 1.3 mg/dL (0.2-1.2); C-REACTIVE PROTEIN 8.58 mg/dL (0.00-0.50); CALCIUM 9.3 mg/dL (8.4-10.2); CREATININE, serum 3.16 mg/dL (0.57-1.11); POTASSIUM 3.6 mmol/L (3.5-4.5); TOTAL PROTEIN 7.3 gm/dL (6.2-8.1)
[2022-12-26 17:43] LABS: TROPONIN-I 0.096 ng/mL (0.00-0.033)
[2022-12-26 18:00] LABS: BAND 12 % (0-10); EOSINOPHIL 1 % (0-4); HYPOCHROMIA 3+; LYMPHOCYTE 21 % (20.0-51.0); NEUTROPHILS 64 % (42.0-75.2); NUCLEATED RED BLOOD CELL 1 (0-6); OVALOCYTES 2+; TARGET CELLS 1+
[2022-12-26 18:01] LABS: ANISOCYTOSIS 2+; PLATELET ESTIMATE INCREASED (NORMAL)
[2022-12-26 18:02] LABS: BURR CELLS 1+
[2022-12-26] MEDS ORDERED: SENNA-LAX8.6 MG PO (20:45)
[2022-12-26 20:51] VITALS: BP 125/34; PULSE 75; TEMP 98.6
--- NOTE | 2022-12-26 22:46 | NUR ---
PATIENT ASSESSED. SHE IS AOX1 (SELF) AND WAKES TO VOICE. SHE TRANSFERRED TO BED VIA 2X ASSIST. MESSI, DAUGHTER, AT BEDSIDE ASSISTING WITH ADMISSION QUESTIONS. LUNGS CLEAR BILAT. BOWEL SOUNDS AUDIBLE. COCCYX EXCORIATED. MEEK WITH LEXI OUTPUT. BLE ARE DRY. VSS. FISTULA TO LEFT ARM. [facility] TO [facility]. WBC-16.8. LAB NOTIFIED THIS NURSE OF CRITICAL TROP 0.095 AT 2024 AND THIS WAS NOTED THE LAST ONE WAS 0.096. BED IN LOWEST POSITION. CALL LIGHT IN REACH.
[2022-12-26 23:39] VITALS: BP 140/44; PULSE 76; TEMP 98.4
[2022-12-27] VITALS (7 sets, daily range): BP systolic 106–145; BP diastolic 36–76; PULSE 70–80; TEMP 97.6–98.9
[2022-12-27 08:11] LABS: PATHOLOGY DIFF REVIEW OK
[2022-12-27 08:25] LABS: MEAN CELL VOLUME 84 fl (80.0-100.0); MEAN CORPUSCULAR HGB CONC 29 g/dl (33.0-37.0); MEAN PLATELET VOLUME 10.4 fl (7.4-10.4); PLATELET COUNT 486 K/mm3 (130-400); RED BLOOD COUNT 2.97 M/mm3 (4.10-5.30); REDCELL DISTRIBUTION WIDTH-CV 18.6 % (11.5-14.5)
[2022-12-27 08:27] LABS: HEMOGLOBIN 7.2 g/dl (12.5-16.0); MEAN CORPUSCULAR HEMOGLOBIN 24 pg (27-31)
[2022-12-27 08:51] LABS: BAND 2 % (0-10); BASOPHIL 1 % (0-2); EOSINOPHIL 2 % (0-4); HYPOCHROMIA 3+; LYMPHOCYTE 18 % (20.0-51.0); NEUTROPHILS 71 % (42.0-75.2); NUCLEATED RED BLOOD CELL 3 (0-6); PLATELET ESTIMATE INCREASED (NORMAL)
[2022-12-27 08:52] LABS: POIKILOCYTOSIS 3+
[2022-12-27 08:53] LABS: OVALOCYTES 2+; TARGET CELLS 2+
[2022-12-27 08:54] LABS: ANISOCYTOSIS 1+; MICROCYTOSIS 1+; SCHISTOCYTES 1+
[2022-12-27 09:08] LABS: HOWELL-JOLLY BODIES 3+
[2022-12-27 09:09] LABS: BURR CELLS 1+
--- NOTE | 2022-12-27 09:23 | NUR ---
Initial visit; Patient spoke briefly with Optical Glass Etcher when she introduced herself. Patient recognized when Optical Glass Etcher offered him God's blessings and to keep him in her prayers. Optical Glass Etcher offered God's blessings for Jackelin.
[2022-12-27 09:58] LABS: ALBUMIN 2.4 gm/dL (3.4-4.8); CREATININE, serum 4.47 mg/dL (0.57-1.11); PHOSPHOROUS 4.6 mg/dL (2.3-4.7); POTASSIUM 3.9 mmol/L (3.5-4.5)
[2022-12-27 10:06] LABS: TROPONIN-I 0.085 ng/mL (0.00-0.033)
--- NOTE | 2022-12-27 13:09 | NUR ---
SANG confirmed with Kook at [facility] that the patient is there for a skilled stay. SANG staffed with the patient's RN. The patient has only been oriented to herself. SANG contacted the patient's daughter, Griselda Xavier (ph#[phone]), to discuss discharge plan. Griselda reports that the patient was just admitted to [facility] for SNF on Saturday evening. She was at [facility] prior. The patient's PCP is Dr. Cristal Palafox and the patient's DPOA-HC is in EMR and designates Griselda. Griselda states that she is extremely pleased with the care the patient was receiving at [facility] and she would like for the patient to return back there to resume her skilled stay upon discharge. She shares that she was unable to afford to reserve the patient's bed though, but would still like the patient to return back there. SANG faxed updates to Koko at [facility] and inquired about the bed situation. *Discharge plan: [facility] SNF*
--- NOTE | 2022-12-27 15:25 | NUR ---
Pt continues to be lethargic. Does respond to voice and answers questions appropriately. Unable to feed/water self. Does not move or change position without encouragement or assistance. Denies pain unless moving pt. VSS, maintains O2 sats on 3L via NC. Administered enema per order. Attempted to transfer pt to commode. Pt unable to maintain sitting position without assistance. Pt reports that she is WC bound at baseline. Pt able to tolerate approx 500ml water with small loose stool as result. Q2 turns continue. Pt refuses food, reports she is not hungry. Was willing to drink glucerna. Needs assist with eating and drinking. Applied barrier cream to thin pink new skin of healed ulcer on coccyx.
[2022-12-27] MEDS ORDERED: TOUJEO300 U/ML SQ (15:31)
[2022-12-27] MEDS ORDERED: VOLTAREN GEL 1%1 TU TP (15:49)
[2022-12-27] MEDS ORDERED: LASIX 80MG TABL80 MG PO (15:51)
--- NOTE | 2022-12-27 19:00 | NUR ---
RECEIVED CHANGE OF SHIFT REPORT FROM DAY SHIFT RN.
[2022-12-28] VITALS (17 sets, daily range): BP systolic 108–156; BP diastolic 30–52; PULSE 62–71; TEMP 97.9–98.9
--- NOTE | 2022-12-28 05:54 | NUR ---
OBSERVED PATIENT WITH LOW ORAL INTAKE OF FLUIDS WITH OBSERVED MEEK OUTPUT OF 50 ML FOR THIS SHIFT OF CLOUDY TEA COLORED URINE.
[2022-12-28 06:38] LABS: MEAN CELL VOLUME 86 fl (80.0-100.0); MEAN CORPUSCULAR HGB CONC 28 g/dl (33.0-37.0); MEAN PLATELET VOLUME 11.1 fl (7.4-10.4); PLATELET COUNT 487 K/mm3 (130-400); RED BLOOD COUNT 2.77 M/mm3 (4.10-5.30); REDCELL DISTRIBUTION WIDTH-CV 18.8 % (11.5-14.5)
[2022-12-28 06:43] LABS: ALBUMIN 2.3 gm/dL (3.4-4.8); CALCIUM 8.9 mg/dL (8.4-10.2); CREATININE, serum 5.72 mg/dL (0.57-1.11); HEMATOCRIT 23.8 % (37.0-47.0); HEMOGLOBIN 6.6 g/dl (12.5-16.0); MEAN CORPUSCULAR HEMOGLOBIN 24 pg (27-31); PHOSPHOROUS 4.8 mg/dL (2.3-4.7); POTASSIUM 3.6 mmol/L (3.5-4.5)
--- NOTE | 2022-12-28 07:06 | NUR ---
LAB CALLED WITH CRITICAL HGB VALUE OF 6.6, CALLED TO JUSTIN CANO, DR CANO RN, ORDERS GIVEN FOR TRANSFUSE 1 UNIT PC WHEN AVAILABLE AND RECHECK HGB IN AM.
--- NOTE | 2022-12-28 07:12 | NUR ---
CHANGE OF SHIFT REPORT GIVEN TO DAY SHIFT DEEDEE CANO
[2022-12-28 07:33] LABS: BASOPHIL 1 % (0-2); EOSINOPHIL 3 % (0-4); LYMPHOCYTE 14 % (20.0-51.0); NEUTROPHILS 75 % (42.0-75.2); NUCLEATED RED BLOOD CELL 2 (0-6); PLATELET ESTIMATE INCREASED (NORMAL); TARGET CELLS 2+
--- NOTE | 2022-12-28 07:33 | NUR ---
Pt is alert, oriented to person and place. Discussed labs and explained need for blood transfusion. Pt requests wanting to speak with daughter before giving consent. Left msg for daughter, Griselda, .
[2022-12-28 07:34] LABS: ANISOCYTOSIS 1+; BURR CELLS 1+; HYPOCHROMIA 3+; OVALOCYTES 1+
--- NOTE | 2022-12-28 08:05 | NUR ---
Pt to dialysis via bed. Holding AM meds until dialysis is complete.
--- NOTE | 2022-12-28 10:30 | NUR ---
Blood transfusion given through dialysis machine. Started at 60ml/hr per protocol then increased to 999ml/hr. Pt denies indications of transfusion rx at this time.
--- NOTE | 2022-12-28 10:34 | NUR ---
0730 Head to toe assessment completed. patient denies pain, rates pain from a 0-10 at 0. Patient seemed calm and looked tired.raised head of bed for comfort. call light within reach, will continue to monitor.
--- NOTE | 2022-12-28 10:53 | NUR ---
1u Blood transfusion complete. VSS, no reaction noted.
--- NOTE | 2022-12-28 12:30 | NUR ---
Rec'd new order for 1u PRBC. Contact Carola Urbina APRN to inform of completion of dialysis and pt has 22g PIV. Per provider, IV team attempts 20g PIV without success. Instructed to use current 22g for blood transfusion if unable to get large bore IV.
--- NOTE | 2022-12-28 12:55 | NUR ---
SW faxed updates to [facility].
--- NOTE | 2022-12-28 15:06 | NUR ---
Pt awakens upon this RN entering room. Clearly verbalizes that therapy had been in and helped her stand at bedside. Pt continues to carry on conversation about current situation, thinking she was at SNF but accepting when told she was in the hospital. Pt states "I am in really bad shape." Continues to converse about current and past events. States that she lived with daughter Aditi here in [place], most recently and daughter Griselda in [place]. Pt does have difficulty maintaining train of thought and reports feeling very tired.
--- NOTE | 2022-12-28 20:40 | NUR ---
Patient assessed at 1924. 2nd unit of blood completed at 1925. Denies having pain and discomfort. Repositioned in bed as requested. Alert and oriented x 4 at this time. Voices no questions, needs, or concerns at this time. In bed with call light within reach.
[2022-12-29 05:09] VITALS: BP 149/43; PULSE 64; TEMP 98.2
--- NOTE | 2022-12-29 05:45 | NUR ---
During the night, patient reported not being able to push call light for help. Given soft touch call light to use, and able to use it. Recieved IV ABX per order. On oxygen at 1.5 L/min via NC. Voices no questions, needs, or concerns at this time. In bed with call light within reach.
[2022-12-29 06:02] LABS: BASO # 0.1 K/mm3 (0.0-0.2); BASO % 0.3 % (0.0-2.0); EOS # 0.5 K/mm3 (0.0-0.7); EOS % 3.1 % (0.0-4.0); GRAN # 11.1 K/mm3 (1.4-6.5); GRAN % 73.7 % (42.2-75.2); LYMPH # 1.9 K/mm3 (1.2-3.4); LYMPH % 12.6 % (20.0-51.0); MEAN CELL VOLUME 88 fl (80.0-100.0); MEAN CORPUSCULAR HGB CONC 30 g/dl (33.0-37.0); MEAN PLATELET VOLUME 10.5 fl (7.4-10.4); MONO # 1.4 K/mm3 (0.1-0.6); MONO % 9.2 % (1.7-9.3); PLATELET COUNT 411 K/mm3 (130-400); RED BLOOD COUNT 3.86 M/mm3 (4.10-5.30); REDCELL DISTRIBUTION WIDTH-CV 17.5 % (11.5-14.5)
[2022-12-29 06:07] LABS: HEMATOCRIT 34.1 % (37.0-47.0); HEMOGLOBIN 10.1 g/dl (12.5-16.0); MEAN CORPUSCULAR HEMOGLOBIN 26 pg (27-31)
[2022-12-29 06:13] LABS: ALBUMIN 2.4 gm/dL (3.4-4.8); CALCIUM 9.1 mg/dL (8.4-10.2); CREATININE, serum 3.58 mg/dL (0.57-1.11); PHOSPHOROUS 2.9 mg/dL (2.3-4.7); POTASSIUM 3.6 mmol/L (3.5-4.5)
[2022-12-29 08:00] VITALS: BP 141/38; PULSE 58; TEMP 97.3
--- NOTE | 2022-12-29 11:43 | NUR ---
PATIENT ALERT AND ORIENTED X4. VSS. PATIENT HERE FOR DIALYSIS/UNRESPONSIVE. PATIENT REPORTS GENERALIZED PAIN, RATING 3/10. MEEK TO DD WITH DARK LEXI OUTPUT. ASSESSMENT PERFORMED. AM MEDS ADMINISTERED. PATIENT DENIES ANY FURTHER NEEDS. CALL LIGHT WITHIN REACH.
[2022-12-29 11:52] VITALS: BP 135/33; PULSE 62; TEMP 97.9
[2022-12-29 16:38] VITALS: BP 133/37; PULSE 57; TEMP 97.7
--- NOTE | 2022-12-29 18:12 | NUR ---
MEEK REMOVED EARLY THIS AFTERNOON. PATIENT HAS NOT FELT THE URGE TO URINATE. FR FOLLOWED CLOSELY TODAY. PATIENT AT 1400ML FOR TODAY.
[2022-12-29 19:33] VITALS: BP 137/34; PULSE 57; TEMP 97.8
--- NOTE | 2022-12-29 21:20 | NUR ---
pt resting in bed. meds given and assessment complete. pt reports having a burning sensation in her mouth after eating pineapple. some redness present upon observation but told patient that its not uncommon for that to happen after eating pineapple. she reports it is no the first time she has had it either. denies any difficulty breathing. fistula thrill and bruit present in MARIELA. left arm restriction in place. INT to right forearm with no redness. vss and tele in place. pt on specialty mattress to help prevent pressure sores. turned pt left side and positioned w pillows for comfort. redness to heels, boots in place to relieve pressure. pt incontinent of small amount of stool and urine when observing coccyx, barrier cream applied. bs 198 and does not require insulin. pt on 1.5L nasal cannula. contact precautions in place. call light in reach. no needs at this time.
[2022-12-29 23:32] VITALS: BP 135/50; PULSE 57; TEMP 98
[2022-12-30 03:38] VITALS: BP 134/38; PULSE 62; TEMP 98.2
--- NOTE | 2022-12-30 06:21 | NUR ---
pt had an uneventful night, denies needs this morning. pt on 1.5 liters nc.
[2022-12-30 06:27] LABS: BASO # 0.1 K/mm3 (0.0-0.2); BASO % 0.5 % (0.0-2.0); EOS # 0.6 K/mm3 (0.0-0.7); EOS % 4.5 % (0.0-4.0); GRAN # 9.2 K/mm3 (1.4-6.5); GRAN % 68.1 % (42.2-75.2); LYMPH # 2.2 K/mm3 (1.2-3.4); LYMPH % 16.6 % (20.0-51.0); MEAN CELL VOLUME 86 fl (80.0-100.0); MEAN CORPUSCULAR HEMOGLOBIN 26 pg (27-31); MEAN CORPUSCULAR HGB CONC 30 g/dl (33.0-37.0); MEAN PLATELET VOLUME 10.9 fl (7.4-10.4); MONO # 1.3 K/mm3 (0.1-0.6); MONO % 9.5 % (1.7-9.3); PLATELET COUNT 398 K/mm3 (130-400); RED BLOOD COUNT 3.83 M/mm3 (4.10-5.30); REDCELL DISTRIBUTION WIDTH-CV 18.6 % (11.5-14.5)
[2022-12-30 06:42] LABS: ALBUMIN 2.3 gm/dL (3.4-4.8); CALCIUM 8.9 mg/dL (8.4-10.2); CREATININE, serum 4.93 mg/dL (0.57-1.11); PHOSPHOROUS 3.2 mg/dL (2.3-4.7); POTASSIUM 4.1 mmol/L (3.5-4.5)
[2022-12-30 07:41] VITALS: BP 143/40; PULSE 61; TEMP 98.3
[2022-12-30 11:51] VITALS: BP 126/38; PULSE 56; TEMP 98
--- NOTE | 2022-12-30 14:48 | NUR ---
SANG informed that patient would DCing on Saturday12/31/2022 after dialysis to [facility]. SANG called [facility] staff to provide information. Staff reported patient is on their radar as well to dc on the day listed above. Next SW will be informed. SANG will continue to follow.
[2022-12-30 15:56] VITALS: BP 140/45; PULSE 57; TEMP 97.7
--- NOTE | 2022-12-30 18:50 | NUR ---
REPORT FROM RACHAEL TAVERA.
[2022-12-30 20:20] VITALS: BP 165/46; PULSE 57; TEMP 97.8
--- NOTE | 2022-12-30 22:30 | NUR ---
THE PATIENT HAD A BOWEL MOVEMENT AT THIS TIME. DURING CLEANING, IT WAS NOTICED THAT THE PATIENT HAD SOME BLEEDING FROM HER VAGINA AND THERE WAS LARGE CLOT ON THE MAITE PAD. THE CLOT WAS ABOUT SILVER DOLLAR SIZED. THE PATIENT IS VERY CONCERNED ABOUT THIS. THIS RN DISCUSSED THE CONCERN WITH THE PATIENT AND SAID WE COULD CALL HER DAUGHTER IN THE MORNING.
[2022-12-30 23:16] VITALS: BP 136/43; PULSE 58; TEMP 98.2
[2022-12-31 03:59] VITALS: BP 132/50; PULSE 56; TEMP 98.7
[2022-12-31 06:02] LABS: BASO # 0.1 K/mm3 (0.0-0.2); BASO % 0.5 % (0.0-2.0); EOS # 0.7 K/mm3 (0.0-0.7); EOS % 4.8 % (0.0-4.0); GRAN # 9.8 K/mm3 (1.4-6.5); GRAN % 70.9 % (42.2-75.2); HEMOGLOBIN 10.7 g/dl (12.5-16.0); LYMPH # 1.9 K/mm3 (1.2-3.4); LYMPH % 13.6 % (20.0-51.0); MEAN CELL VOLUME 86 fl (80.0-100.0); MEAN CORPUSCULAR HEMOGLOBIN 27 pg (27-31); MEAN CORPUSCULAR HGB CONC 31 g/dl (33.0-37.0); MEAN PLATELET VOLUME 11.1 fl (7.4-10.4); MONO # 1.3 K/mm3 (0.1-0.6); MONO % 9.5 % (1.7-9.3); PLATELET COUNT 387 K/mm3 (130-400); REDCELL DISTRIBUTION WIDTH-CV 19.8 % (11.5-14.5)
[2022-12-31 06:07] LABS: HEMATOCRIT 34.4 % (37.0-47.0)
--- NOTE | 2022-12-31 06:13 | NUR ---
PATIENT CALLED DAUGHTER AT THIS TIME. WILL CONTACT PROVIDER REGARDING BLOOD CLOT.
[2022-12-31 06:23] LABS: ALBUMIN 2.5 gm/dL (3.4-4.8); CREATININE, serum 6.04 mg/dL (0.57-1.11); PHOSPHOROUS 3.8 mg/dL (2.3-4.7); POTASSIUM 4.1 mmol/L (3.5-4.5)
[2022-12-31 07:37] VITALS: BP 140/54; PULSE 61; TEMP 98.3
--- NOTE | 2022-12-31 10:23 | NUR ---
Pt oriented to person/place, denies pain, VSS. Has difficulty feeding self r/t tremors in R hand. Once food is cut, pt can feed self. Cleansed minesh-area prior to bed transfer to dialysis. Noted to have thick purulent drainage from vaginal area, no blood noted at this time. Also, cleansed smears of soft stool. Coccyx area noted to have purple, non-blanchable areas. Repositioned pt to R side with pillow for support.
[2022-12-31] MEDS ORDERED: ZYVOX 600MG600 MG PO (11:02)
--- NOTE | 2022-12-31 15:34 | NUR ---
Pt d/c, return to SNF [facility]. IV d/c complete/intact from [facility]. Assist pt to dress in own clothing. Use sit to stand to assist into tranport WC. Pt is A&O to person/place and intermittently time/situation. Maintaining sats >92% on 1L O2 via NC. Continues to have purulent vaginal drainage, no blood noted this shift. Minimal urine output. No extremity edema noted. Report called to RACHAEL Santos.
--- NOTE | 2022-12-31 16:27 | NUR ---
Director Software Development notified by MIRANDA Ferrer that patient to discharge back to [facility] today. SANG met with patient in dialysis and reviewed IM form. Patient verbalized understanding and gave verbal consent as siganture as she is currently receiving dialysis, making it difficult to sign. SANG placed form in chart and provided copy in discharge folder. SANG contacted patient's daughter, Griselda who is happy patient will return to [facility] as she is pleased with their care. Transport time set for 1500. SANG faxed discharge orders to Koko at [facility]. Discharge Plan: [facility]
== END 2022-12-31 15:34 | DRG 947 ==
LOC: COL.ER 15:44 → SURG 18:30
PROVIDERS: Emergency Medicine; Registered Nurse; ADMIT Internal Medicine Nephrology
PROC: 5A1D70Z Performance of Urinary Filtration, Intermittent, Less than 6 Hours Per Day (ICD-10-PCS; principal; 2022-12-28)
PROC: 30233N1 Transfusion of Nonautologous Red Blood Cells into Peripheral Vein, Percutaneous Approach (ICD-10-PCS; 2022-12-28)
DX: R53.83 Other fatigue (principal); N18.6 End stage renal disease; N39.0 Urinary tract infection, site not specified; N25.81 Secondary hyperparathyroidism of renal origin; I12.0 Hypertensive chronic kidney disease with stage 5 chronic kidney disease or end stage renal disease; J90 Pleural effusion, not elsewhere classified; E78.5 Hyperlipidemia, unspecified; I25.10 Atherosclerotic heart disease of native coronary artery without angina pectoris; I27.20 Pulmonary hypertension, unspecified; D63.1 Anemia in chronic kidney disease; E03.9 Hypothyroidism, unspecified; K21.9 Gastro-esophageal reflux disease without esophagitis; D33.3 Benign neoplasm of cranial nerves; I65.23 Occlusion and stenosis of bilateral carotid arteries; H40.9 Unspecified glaucoma; M19.90 Unspecified osteoarthritis, unspecified site; E11.22 Type 2 diabetes mellitus with diabetic chronic kidney disease; I48.91 Unspecified atrial fibrillation; Z96.652 Presence of left artificial knee joint; R09.02 Hypoxemia; L89.329 Pressure ulcer of left buttock, unspecified stage; L89.319 Pressure ulcer of right buttock, unspecified stage; K56.41 Fecal impaction; F32.A Depression, unspecified; Z66 Do not resuscitate; E83.39 Other disorders of phosphorus metabolism; N32.81 Overactive bladder; Z87.19 Personal history of other diseases of the digestive system; Z86.73 Personal history of transient ischemic attack (TIA), and cerebral infarction without residual deficits; Z99.2 Dependence on renal dialysis; Z90.49 Acquired absence of other specified parts of digestive tract; Z90.5 Acquired absence of kidney; Z88.0 Allergy status to penicillin; Z88.8 Allergy status to other drugs, medicaments and biological substances; Z88.6 Allergy status to analgesic agent; Z88.1 Allergy status to other antibiotic agents; Z91.041 Radiographic dye allergy status; Z87.442 Personal history of urinary calculi; Z79.4 Long term (current) use of insulin; Z79.82 Long term (current) use of aspirin; Z79.890 Hormone replacement therapy; Z23 Encounter for immunization
CPT/HCPCS: J0696; J1644; J1756; J1815; J2020; J7030; P9016; Q5105